=== PATIENT | female | born 1970 | race Caucasian/White ===

== ENCOUNTER → 2017-08-31 | Outpatient (CLI) | payer OTHER ==
[~2017-08-31] MED LIST: BUTA1TAB46 PO; CYCL10TA9 PO; DOXY100C2 PO; DULO30CA; DULO60CA58 PO; DULO60CA6 PO; EST1.25T; HYDR-3812 PO; LEVE750T16 PO; LEVE750T5 PO; LISI10TA2 PO; LRZ1T; METF500T4 PO; MTF500T; NAPR-243 PO; NF-ESOM40C; OXYC-197 PO; TOPI50TA20; ZONI100C3 PO; ZONISAMIDE PO
--- NOTE | 2017-08-31 10:48 | Diagnostic Imaging Report ---
EXAMINATION: Three views of the lumbar spine. INDICATION: Back pain. FINDINGS: There is straightening of the lumbar lordosis. The vertebral body heights are preserved. Disc heights are also preserved. There is minimal anterior osteophyte formation at L3/4 level. No posterior osteophytes. SI joints appear symmetric. Surgical clips in the upper right side of the abdomen seen. IMPRESSION: Straightening of the lumbar lordosis may relate to muscle spasm. Dictated by: Dictated on workstation # [id number]
== END ==
LOC: RAD 09:49
PROVIDERS: ATTEND Neuromusculoskeletal Medicine, Sports Medicine
DX: M40.56 Lordosis, unspecified, lumbar region (principal); I10 Essential (primary) hypertension; E66.9 Obesity, unspecified; E11.9 Type 2 diabetes mellitus without complications; F32.9 Major depressive disorder, single episode, unspecified; Z87.19 Personal history of other diseases of the digestive system; Z86.19 Personal history of other infectious and parasitic diseases
CPT/HCPCS: 72100

== ENCOUNTER → 2017-09-16 | Outpatient (CLI) | payer MEDICARE, OTHER ==
[~2017-09-16] MED LIST changes: +ACHD5005 PO; -HYDR-3812 PO; +LEVE750T19 PO; +NF-ZONI100 PO
--- NOTE | 2017-09-16 11:18 | Diagnostic Imaging Report ---
CLINICAL INDICATION: Thyromegaly. Patient feels fullness in right neck. COMPARISONS: None. FINDINGS: THYROID NODULES: None. THYROID GLAND: The thyroid gland has normal size, shape and echogenicity. The right lobe measures 6.1 cm x 1.9 cm x 1.9 cm and the left lobe measures 4.9 cm x 1.9 cm x 1.7 cm in their three dimensions. ISTHMUS: The isthmus is unremarkable and measures 2.3 mm in thickness. Impression: Unremarkable thyroid ultrasound. Dictated by: Dictated on workstation # [id number]
== END ==
LOC: RAD 10:35
PROVIDERS: ATTEND Internal Medicine
DX: E01.0 Iodine-deficiency related diffuse (endemic) goiter (principal)
CPT/HCPCS: 76536

== ENCOUNTER 2017-09-17 05:43 | Outpatient (CLI) | payer MEDICARE ==
[~2017-09-17] VITALS: Ht 160 cm; Wt 134.9 kg
[~2017-09-17 05:43] MED LIST changes: -LEVE750T19 PO; -NF-ZONI100 PO
[2017-09-17] MEDS ORDERED: LEVE750T19 PO (13:43)
[2017-09-17] MEDS ORDERED: NF-ZONI100 PO (13:43)
[2017-09-18] MEDS ORDERED: ACHD5005 PO (09:04)
== END 2017-09-17 13:51 ==
LOC: PREOP 05:43
PROVIDERS: ATTEND Surgery
DX: Z01.818 Encounter for other preprocedural examination (principal); T82.9XXA Unspecified complication of cardiac and vascular prosthetic device, implant and graft, initial encounter

== ENCOUNTER 2017-09-18 07:14 | Day surgery (SDC) | payer MEDICARE ==
[~2017-09-18] VITALS: Ht 160 cm; Wt 134.9 kg
[~2017-09-18 07:14] MED LIST changes: +LEVE750T19 PO; +NF-ZONI100 PO
[2017-09-18] MEDS ORDERED: ceFAZolin 2 GM/50 ML NS 50 ML ONE (07:43)
[2017-09-18 07:52] VITALS: BP 157/94
[2017-09-18] MEDS ORDERED: ceFAZolin 2 GM/50 ML NS 50 ML IV ONE (08:00)
[2017-09-18] MEDS ORDERED: ceFAZolin 2 GM/NS 50 ML IV ONE (08:00)
[2017-09-18] MEDS ORDERED: BUP/EPI 0.5% 1:200,000 (MARCAINE) 10ML VIAL IJ ONE (08:32)
--- NOTE | 2017-09-18 08:35 | Progress Note-Pre Operative ---
Pre-Operative Progress Note H&P Reviewed The H&P was reviewed, patient examined and no changes noted. Date Seen by Provider: Sep 16, 2017 Time Seen by Provider: 14:00 Date H&P Reviewed: Sep 18, 2017 Time H&P Reviewed: 08:35 Pre-Operative Diagnosis: Unused infusaport JIHAN REYES MD Sep 18, 2017 8:35 am
[2017-09-18] MEDS ORDERED: MIDAZOLAM 2 MG/2 ML (VERSED) VIAL ONE ×2 (08:48→09:09)
[2017-09-18] MEDS ORDERED: proPOfol 200 MG/20 ML (DIPRIVAN) VIAL IV ONE (08:48)
[2017-09-18] MEDS ORDERED: LIDOCAINE PF 2% 5 ML (XYLOCAINE) VIAL ONE (08:48)
[2017-09-18] MEDS ORDERED: ACHD5005 PO (09:04)
--- NOTE | 2017-09-18 09:04 | Discharge Inst-Simple/Standard ---
Discharge Inst-Standard Discharge Medications New, Converted or Re-Newed RX: RX on Chart Patient Instructions/Follow Up Plan of Care/Instructions/FU: dressings off in 48 hours. Activity as Tolerated: Yes Discharge Diet: No Restrictions JIHAN REYES MD Sep 18, 2017 9:04 am
[2017-09-18] MEDS ORDERED: fentaNYL INJECTION 100 MCG/2 ML AMP ONE (09:05)
--- NOTE | 2017-09-18 09:32 | Operative Report ---
Operative Report Date of Procedure/Surgery Sep 18, 2017 Surgeon (s) JIHAN REYES MD Solar Panel Installation Supervisor (s): Jeyson Wilcox (Medical Student) Post-Operative Diagnosis Same Procedure Performed Removal of [id number]-j-Gbtf Description of Procedure Anesthesia Type: MAC Estimated blood loss (mL): Minimal Specimen(s) collected/removed None Description of the Procedure Indication for the procedure: Due to non-use of an existing and functional Yuwbiu-w-Armi, the patient requested removal. Informed consent was obtained after reviewing the procedure in detail. Description of the procedure: She was placed supine on the operative table and our anesthesiologist administered sedation, monitoring her vital signs. Ancef was administered intravenously as prophylaxis against wound infection. Right infraclavicular fossa was prepared and draped in the usual sterile manner. Local anesthesia was achieved using 0.5 percent Marcaine with epinephrine. A secondary incision was made along the previous scar and the [id number] removed without risking air embolism. The incision was then closed using 3-0 Vicryl for the subcutaneous tissue and 4- 0 Vicryl for skin, in a subcuticular fashion. She tolerated the procedure well and was taken back to the nursing area in a stable condition. Findings of the Procedure See op report Allergies and Home Medications Allergies Coded Allergies: Penicillins (Verified Allergy, Unknown, Pt has received Ancef w/o issue, ) Home Medications Duloxetine HCl 60 Mg Capsule.dr, 60 MG PO DAILY, (Reported) Hydrocodone Bit/Acetaminophen 1 Tab Tab, 1-2 TAB PO 4-6HR PRN for PAIN, #10 Ref 0 Prescribed by: JIHAN REYES on 09/18/17 0904 Levetiracetam 750 Mg Tablet, 750 MG PO BID, (Reported) Lisinopril 10 Mg Tablet, 10 MG PO DAILY, (Reported) Metformin HCl 500 Mg Tablet, 500 MG PO DAILY, (Reported) Zonisamide 100 Mg Capsule, 100 MG PO BID, (Reported) JIHAN REYES MD Sep 18, 2017 9:32 am
[2017-09-18] MEDS ORDERED: morphine INJ 10 MG/ML 1ML (SYR OR VIAL) ONE (09:42)
[2017-09-18] MEDS: morphine INJ 10 MG/ML 1ML (SYR OR VIAL) IVP PRN ×2 (09:45→09:49)
[2017-09-18] MEDS ORDERED: ONDANSETRON 4 MG/2 ML (SDV) Z0FRAN IVP PRN (09:45)
[2017-09-18 10:10] VITALS: BP 150/94
[2017-09-18 10:36] VITALS: BP 153/96
[2017-09-18 10:42] VITALS: BP 153/96
--- OUTSIDE RECORDS SUMMARY | 2017-09-19 00:11 | XMS REPORT | Clinical Summary ---
Author Author [facility] Address Unknown Phone Unavailable Support Name Relationship Address Phone , Rk Alvarez [address] [place] [address] Allergies Active Allergy Reactions Severity Noted Date Comments Penicillins Rash Medium 05/09/2011 Current Medications Prescription Sig. Disp. Refills Start End Date Status Date duloxetine (CYMBALTA) 30 Take 60 mg by mouth Active MG capsule daily. zonisamide (ZONEGRAN) 100 Take 200 mg by mouth 2 05/09/20 Active MG capsuleIndications: (two) times daily. 11 Seizure Indications: Seizure levETIRAcetam (KEPPRA) Take 750 mg by mouth 2 Active 250 MG tablet (two) times daily. estrogens, conjugated, Take 1.25 mg by mouth Active (PREMARIN) 1.25 MG tablet daily. lisinopril Take 20 mg by mouth Active (PRINIVIL,ZESTRIL) 20 MG daily. tablet ARIPiprazole (ABILIFY) 10 Take 5 mg by mouth daily. Active MG tablet hydrOXYzine (VISTARIL) 50 Take 50 mg by mouth every Active MG capsule evening. Active Problems Problem Noted Date Suicidal ideation 05/20/2011 Seizure disorder (HCC) 05/20/2011 Major depressive disorder, recurrent episode, severe, without mention of 02/2011 psychotic behavior (HCC) Family History Medical History Relation Name Comments Cancer Father ALANA ZENG Heart disease Father ALANA ZENG Hypertension Father ALANA ZENG Mental illness Sister MIL CLARKUSSER Mental illness Sister MICHAEL HERRMANN Relation Name Status Comments Father ALANA Alive KARRI Sister MIL SLUSSER Alive Sister MICHAEL Alive PRESTONLER Social History Tobacco Use Types Packs/Day Years Used Date Current Every Day Smoker 3 Comments: Smoking History Packs/day: Daily/Cigars/3 cigars Alcohol Use Drinks/Week oz/Week Comments No Sex Assigned at Date Recorded Not on file Last Filed Vital Signs Vital Sign Reading Time Taken Blood Pressure 94/77 01/09/2012 1:04 AM CDT Pulse 85 01/09/2012 1:04 AM CDT Temperature 36.8 C (98.2 F) 01/08/2012 9:54 PM CDT Respiratory Rate 20 01/08/2012 9:54 PM CDT Oxygen Saturation 94% 01/09/2012 1:04 AM CDT Inhaled Oxygen - - Concentration Weight 104.3 kg (230 lb) 01/08/2012 9:54 PM CDT Height 160 cm (5' 3") 01/08/2012 9:54 PM CDT Body Mass Index 40.74 01/08/2012 9:54 PM CDT Plan of Treatment Health Maintenance Due Date Last Done Comments Varicella Vaccines (1 of 1985 2 - 2 Dose Adolescent Series) DTaP,Tdap,and Td Vaccines 11/25/1991 (1 - Tdap) CERVICAL CANCER SCREENING 1993 Influenza Vaccine (#1) 2017 Results Not on filefrom Last 3 Months
--- OUTSIDE RECORDS SUMMARY | 2017-09-19 00:11 | XMS REPORT ---
Author Author TIMO [facility] Address Unknown Care Team Providers Care Transportation Services Representative Name Role Phone bonnyMontseTIMO TALLEY Unavailable PROBLEMS Type Condition ICD9-CM Code [id number] Code Onset Dates Condition Status SNOMED Code Problem Diabetes mellitus without mention of complication, type II or unspecified type, not stated as uncontrolled 250.00 Active 739220439 Problem Obesity, unspecified 278.00 Active 442991360 Problem Other forms of epilepsy and recurrent seizures, without mention of intractable epilepsy 345.80 Active 068430551 Problem Lumbago 724.2 Active 598597384 Problem Cough 786.2 Active 11731388 Problem Fever, unspecified 780.60 Active 112902464 Problem Other complications due to other vascular device, implant, and graft 996.74 Active 774560431 Problem Acute pharyngitis 462 Active 354255470 Problem Other malaise and fatigue 780.79 Active 730210494 ALLERGIES Substance Reaction Event Type Date Status Penicillin V Potassium Unknown Drug Allergy Aug, Active SOCIAL HISTORY No smoking Hx information available PLAN OF CARE Activity Details Follow Up 1 Week Reason:te VITAL SIGNS Blood pressure systolic 113 mmHg 2016-08-20 Blood pressure diastolic 72 mmHg 2016-08-20 MEDICATIONS Medication Instructions Dosage Frequency Start Date End Date Duration Status Lisinopril 10 MG Orally Once a day take 1 tablet by Oral route 1 time per day at bedtime 24h Nov, 30 days Active Duloxetine HCl 60 MG Orally Once a day 1 capsule 24h Mar, 10 days Active Clindamycin HCl 150 MG Orally every 8 hrs 1 capsule 8h 7 days Active Zonisamide 100 MG Orally Twice a day 2 capsules 12h Nov, 30 days Active Levetiracetam 750 MG Orally 2 times a day 2 tablets 12h Nov, 30 days Active RESULTS No Results PROCEDURES Procedure Date Ordered Related Diagnosis Body Site LTD ORAL EVALUATION - PROBLEM FOCUS Aug 20, 2016 INTRAORL-PERIAPICAL 1 FILM [id number] Aug 20, 2016 Billing Notes on claim Aug 20, 2016 IMMUNIZATIONS No Known Immunizations
--- OUTSIDE RECORDS SUMMARY | 2017-09-19 00:12 | XMS REPORT | Continuity of Care Document ---
Author Author [facility] Address Unknown Phone Unavailable Allergies Active Description Code Type Severity Reaction Onset Reported/Identified Relationship to Patient Clinical Status Yes Penicillins [id number] Drug Allergy Unknown N/A 07/11/2006 Yes Penicillins Drug Allergy N/A N/A 07/14/2014 Medications There is no data. Problems Date Dx Coded Attending Type Code Diagnosis Diagnosed By 02/12/2010 Ot 780.39 02/12/2010 Ot V58.81 11/06/2013 HOANG JESUS DO Ot V58.81 FIT/ADJ VASCULAR CATHETER 02/21/2014 JERRICA ARELLANO, LEESA Myers Ot 401.9 HYPERTENSION NOS 02/21/2014 JERRICA ARELLANO, LEESA Myers Ot 840.9 SPRAIN SHOULDER/ARM NOS 02/21/2014 JERRICA ARELLANO, LEESA Myers Ot 923.00 CONTUSION SHOULDER REG 02/21/2014 JERRICA ARELLANO, LEESA Myers Ot E885.9 FALL FROM SLIPPING, TRIPPING, OR STUMBLI 06/26/2014 GABY FORREST Ot V70.0 ROUTINE MEDICAL EXAM 07/14/2014 SARAH GONZALEZ APRN R 250.00 DIABETES MELLITUS WITHOUT MENTION OF COMPLICATION TYPE II OR UNSPECIFIED TYPE NOT STATED UNCONTROLLED 07/14/2014 SARAH GONZALEZ APRN R 278.00 OBESITY 07/14/2014 SARAH GONZALEZ APRN R 345.80 OTHER FORMS OF EPILEPSY AND RECURRENT SEIZURES WITHOUT MENTION OF INTRACTABLE EPILEPSY 07/14/2014 SARAH GONZALEZ APRN R 250.00 DIABETES MELLITUS WITHOUT MENTION OF COMPLICATION TYPE II OR UNSPECIFIED TYPE NOT STATED UNCONTROLLED 07/14/2014 SARAH GONZALEZ APRN R 278.00 OBESITY 07/14/2014 SARAH GONZALEZ APRN R 345.80 OTHER FORMS OF EPILEPSY AND RECURRENT SEIZURES WITHOUT MENTION OF INTRACTABLE EPILEPSY 07/14/2014 SARAH GONZALEZ APRN R 250.00 DIABETES MELLITUS WITHOUT MENTION OF COMPLICATION TYPE II OR UNSPECIFIED TYPE NOT STATED UNCONTROLLED 07/14/2014 SARAH GONZALEZ APRN R 278.00 OBESITY 07/14/2014 SARAH GONZALEZ APRN R 345.80 OTHER FORMS OF EPILEPSY AND RECURRENT SEIZURES WITHOUT MENTION OF INTRACTABLE EPILEPSY 08/17/2014 SARAH GONZALEZ APRN R 780.60 FEVER, UNSPECIFIED 08/17/2014 SARAH GONZALEZ APRN R 780.79 OTHER MALAISE AND FATIGUE 08/17/2014 SARAH GONZALEZ APRN R 780.60 FEVER, UNSPECIFIED 08/17/2014 SARAH GONZALEZ APRN R 780.79 OTHER MALAISE AND FATIGUE 08/17/2014 Ot 780.79 08/17/2014 Ot 791.9 08/17/2014 Ot 786.3 08/17/2014 Ot 250.00 08/17/2014 Ot 272.4 08/17/2014 Ot 611.72 08/17/2014 Ot V16.3 08/17/2014 Ot 593.9 08/17/2014 Ot 250.00 08/17/2014 Ot 272.4 08/17/2014 HOANG JESUS DO Ot 250.00 08/17/2014 HOANG JESUS DO Ot 272.0 08/17/2014 HOANG JESUS DO Ot 780.39 08/17/2014 HOANG JESUS DO Ot 571.8 08/17/2014 SARAH GONZALEZ APRN Ot V58.81 08/17/2014 SARAH GONZALEZ APRN Ot V58.81 08/17/2014 SARAH GONZALEZ APRN Ot V58.81 08/17/2014 SARAH GONZALEZ APRN Ot V58.81 08/17/2014 SARAH GONZALEZ APRN Ot V58.81 08/18/2014 SARAH GONZALEZ APRN Ot V58.81 08/23/2014 SARAH GONZALEZ APRN Ot V58.81 08/31/2014 SARAH GONZALEZ APRN 996.74 OTHER COMPLICATIONS DUE TO OTHER VASCULAR DEVICE IMPLANT AND GRAFT 11/15/2014 SARAH GONZALEZ APRN Ot V58.81 FIT/ADJ VASCULAR CATHETER 12/14/2014 Ot V76.12 12/25/2014 Ot V76.12 12/26/2014 HOANG JESUS DO Ot 571.8 04/05/2015 Ot 611.72 04/05/2015 Ot V16.3 04/05/2015 Ot 593.9 04/05/2015 Ot 250.00 04/05/2015 Ot 272.4 04/05/2015 HOANG JESUS DO Ot 250.00 04/05/2015 KRISTENLENDER , HOANG Gutierrez Ot 272.0 04/05/2015 HOANG JESUS DO Ot 780.39 04/05/2015 HOANG JESUS DO Ot 571.8 04/05/2015 Ot V58.81 04/05/2015 Ot V76.12 04/05/2015 DOMI BURTON DO Ot 250.00 DIAB BARRY WO COMPL, TYPE II OR UNSPEC TY 04/05/2015 DOMI BURTON DO Ot 339.10 TENSION TYPE HEADACHE, UNSPECIFIED 04/05/2015 DOMI BURTON DO Ot 784.0 HEADACHE 04/05/2015 DOMI BURTON DO Ot V58.69 OTH MED,LT,CURRENT USE 04/30/2015 Ot 611.72 04/30/2015 Ot V16.3 04/30/2015 Ot 593.9 04/30/2015 HOANG JESUS DO Ot 250.00 04/30/2015 HOANG JESUS DO Ot 272.0 04/30/2015 HOANG JESUS DO Ot 780.39 04/30/2015 Ot V58.81 05/02/2015 ERIC ARELLANO, JIHAN Ramos Ot 250.00 DIAB BARRY WO COMPL, TYPE II OR UNSPEC TY 05/02/2015 ERIC ARELLANO, JIHAN Ramos Ot 459.81 VENOUS INSUFFICIENCY NOS 05/02/2015 ERIC ARELLANO, JIHAN Ramos Ot 996.1 MALFUNC VASC DEVICE/TOYA 05/07/2015 ERIC ARELLANO, JIHAN Ramos Ot 345.90 05/07/2015 ERIC ARELLANO, JIHAN Ramos Ot 459.81 05/07/2015 ERIC ARELLANO, JIHAN Ramos Ot 996.1 05/07/2015 ERIC ARELLANO, JIHAN Ramos Ot V72.84 05/07/2015 ERIC RAELLANO, JIHNA Ramos Ot V74.8 07/18/2016 ERIC ARELLANO, JIHAN Ramos Ot K80.20 CALCULUS OF GALLBLADDER W/O CHOLECYSTITI 07/18/2016 ERIC ARELLANO, JIHAN Ramos Ot Z01.818 ENCOUNTER FOR OTHER PREPROCEDURAL EXAMIN 07/18/2016 ERIC ARELLANO, JIHAN Ramos Ot Z11.2 ENCOUNTER FOR SCREENING FOR OTHER BACTER 07/21/2016 ERIC ARELLANO, JIHAN Ramos Ot K80.20 CALCULUS OF GALLBLADDER W/O CHOLECYSTITI 07/21/2016 ERIC ARELLANO, JIHAN Ramos Ot Z01.818 ENCOUNTER FOR OTHER PREPROCEDURAL EXAMIN 07/21/2016 ERIC ARELLANO, JIHAN Ramos Ot Z11.2 ENCOUNTER FOR SCREENING FOR OTHER BACTER 07/23/2016 ERIC ARELLANO, JIHAN Ramos Ot K80.20 CALCULUS OF GALLBLADDER W/O CHOLECYSTITI 07/23/2016 ERIC ARELLANO, JIHAN Ramos Ot Z11.2 ENCOUNTER FOR SCREENING FOR OTHER BACTER 07/24/2016 ERIC ARELLANO, JIHAN Ramos Ot K80.20 CALCULUS OF GALLBLADDER W/O CHOLECYSTITI 07/24/2016 ERIC ARELLANO, JIHAN Ramos Ot Z11.2 ENCOUNTER FOR SCREENING FOR OTHER BACTER 09/14/2016 GELNAMDER DO, HOANG A Ot V58.81 FIT/ADJ VASCULAR CATHETER 10/15/2016 GELLENDER DO HOANG A Ot V58.81 FIT/ADJ VASCULAR CATHETER 03/14/2017 GELLENDER DO, HOANG A Ot V58.81 FIT/ADJ VASCULAR CATHETER 08/31/2017 GELLENDER DOHOANG A Ot 250.00 DIAB BARRY WO COMPL, TYPE II OR UNSPEC TY 08/31/2017 GELLENDER DOHOANG A Ot 272.0 PURE HYPERCHOLESTEROLEM 08/31/2017 GELLENDER DO, HOANG A Ot 780.39 OTHER CONVULSIONS 08/31/2017 GELJOSE DOHOANG Ot 571.8 CHRONIC LIVER DIS NEC 08/31/2017 Ot V58.81 FIT/ADJ VASCULAR CATHETER 08/31/2017 Ot V76.12 OTH SCREEN MAMMO-MALIGN NEOPLASM OF VIKOTR 08/31/2017 ERIC ARELLANO, JIHAN Ramos Ot 345.90 EPILEPSY UNSPEC W/O MENTION INTRACTABLE 08/31/2017 JIHAN REYES MD Ot 459.81 VENOUS INSUFFICIENCY NOS 08/31/2017 JIHAN REYES MD Ot 996.1 MALFUNC VASC DEVICE/TOYA 08/31/2017 JIHAN REYES MD Ot V72.84 EXAM PRE-OPERATIVE NOS 08/31/2017 JIHAN REYES MD Ot V74.8 SCREEN-BACTERIAL DIS NEC 08/31/2017 HOANG JESUS DO Ot 250.00 DIAB BARRY WO COMPL, TYPE II OR UNSPEC TY 08/31/2017 HOANG JESUS DO Ot 272.0 PURE HYPERCHOLESTEROLEM 08/31/2017 HOANG JESUS DO Ot 780.39 OTHER CONVULSIONS 08/31/2017 HOANG JESUS DO Ot 571.8 CHRONIC LIVER DIS NEC 08/31/2017 Ot V58.81 FIT/ADJ VASCULAR CATHETER 08/31/2017 Ot V76.12 OTH SCREEN MAMMO-MALIGN NEOPLASM OF VIKTOR 08/31/2017 ERIC ARELLANO, JIHAN Ramos Ot 345.90 EPILEPSY UNSPEC W/O MENTION INTRACTABLE 08/31/2017 ERIC ARELLANO, JIHAN Ramos Ot 459.81 VENOUS INSUFFICIENCY NOS 08/31/2017 ERIC ARELLANO, JIHAN Ramos Ot 996.1 MALFUNC VASC DEVICE/TOYA 08/31/2017 ERIC ARELLANO, JIHAN Ramos Ot V72.84 EXAM PRE-OPERATIVE NOS 08/31/2017 ERIC ARELLANO, JIHAN Ramos Ot V74.8 SCREEN-BACTERIAL DIS NEC 09/01/2017 Ot E11.9 TYPE 2 DIABETES MELLITUS WITHOUT COMPLIC 09/01/2017 Ot E66.9 OBESITY, UNSPECIFIED 09/01/2017 Ot F32.9 MAJOR DEPRESSIVE DISORDER, SINGLE EPISOD 09/01/2017 Ot I10 ESSENTIAL ( PRIMARY) HYPERTENSION 09/01/2017 Ot M40.56 LORDOSIS, UNSPECIFIED, LUMBAR REGION 09/01/2017 Ot Z86.19 PERSONAL HISTORY OF OTHER INFECTIOUS AND 09/01/2017 Ot Z87.19 PERSONAL HISTORY OF OTHER DISEASES OF TH 09/01/2017 Ot E11.9 TYPE 2 DIABETES MELLITUS WITHOUT COMPLIC 09/01/2017 Ot E66.9 OBESITY, UNSPECIFIED 09/01/2017 Ot F32.9 MAJOR DEPRESSIVE DISORDER, SINGLE EPISOD 09/01/2017 Ot I10 ESSENTIAL ( PRIMARY) HYPERTENSION 09/01/2017 Ot M40.56 LORDOSIS, UNSPECIFIED, LUMBAR REGION 09/01/2017 Ot Z86.19 PERSONAL HISTORY OF OTHER INFECTIOUS AND 09/01/2017 Ot Z87.19 PERSONAL HISTORY OF OTHER DISEASES OF Procedures Code Description [place] [address] CMP 08/17/2014 59796 A1C (IN-HOUSE) 08/17/2014 15269 CBC 08/17/2014 38231 MONO TEST (IN-HOUSE) 08/17/2014 20083 UA W/ CULTURE IF INDICATED 08/17/2014 Results Test Result Range Methicillin resistant Staphylococcus aureus (MRSA) screening culture - 13:10 Methicillin resistant Staphylococcus aureus (MRSA) screening culture NEG NRG Encounters ACCT No. Visit Date/Time Discharge Status Pt. Type Provider Facility Loc./Unit Complaint [id number] 08/31/2014 09:15:00 08/31/2014 23:59:59 CLS Outpatient SARAH GONZALEZ APRN [id number] 08/17/2014 13:35:00 08/17/2014 23:59:59 CLS Outpatient SARAH GONZALEZ APRN [id number] 07/14/2014 13:12:00 07/14/2014 23:59:59 CLS Outpatient SARAH GONZALEZ APRN [id number] 01/11/2010 15:09:00 01/11/2010 23:59:59 CLS Outpatient MICHEL ALAMO DDS [id number] 07/23/2016 06:17:00 07/23/2016 11:58:00 DIS Outpatient JIHAN REYES MD Via [facility] GALLSTONES [id number] 07/18/2016 12:45:00 07/18/2016 13:15:00 DIS Outpatient JIHAN REYES MD [facility] PREOP GALLSTONES [id number] 05/02/2015 09:15:00 05/02/2015 17:39:00 DIS Outpatient JIHAN REYES MD [facility] NON-FUNCTIONING PORT; POOR VENOUS ACCESS [id number] 04/30/2015 09:52:00 04/30/2015 23:59:59 CLS Outpatient JIHAN REYES MD [facility] PREOP NON-FUNCITIONING PORT; POOR VENOUS ACCESS [id number] 04/05/2015 02:02:00 04/05/2015 04:39:00 DIS Emergency DOMI BURTON DO [facility] ER AMIN [id number] 08/17/2014 14:57:00 08/17/2014 23:59:59 CLS Outpatient SARAH GONZALEZ APRN [facility] INDWELLING PORT, OBESITY,DM,FEVER,MALAISE,FATIGUE [id number] 06/26/2014 18:52:00 06/26/2014 19:38:00 DIS Emergency GABY FORREST [facility] ER WANTS MEDS REFILLED [id number] 02/21/2014 01:08:00 02/21/2014 02:42:00 DIS Emergency LEESA BECERRIL MD [facility] ER RT SHOULDER PAIN-FALL 1 WK AGO [id number] 08/08/2013 10:37:00 11/06/2013 00:01:00 DIS Outpatient HOANG JESUS DO [facility] MONTHLY PORT FLUSH X 1 YR [id number] 08/08/2013 10:25:00 08/08/2013 23:59:59 CLS Outpatient HOANG JESUS DO [facility] RAD ABD PAIN RT SIDE FOR 2 MONTHS [id number] 03/23/2013 16:19:00 03/23/2013 23:59:59 CLS Outpatient [id number] 03/14/2013 08:48:00 03/14/2013 23:59:59 CLS Outpatient HOANG JESUS DO [facility] LAB DM,HYPERLCH,SEIZURE [id number] 09/18/2017 08:36:00 Document Registration [id number] 08/31/2017 10:42:00 Document Registration [id number] 11/23/2014 14:09:00 Document Registration [id number] 11/16/2014 00:00:00 Document Registration [id number] 04/02/2010 15:59:00 Document Registration [id number] 11/23/2009 15:59:00 Document Registration [id number] 11/14/2009 12:04:00 Document Registration [id number] 11/14/2009 10:50:00 Document Registration [id number] 07/31/2009 16:00:00 Document Registration [id number] 06/08/2009 15:46:00 Document Registration [id number] 06/06/2009 08:34:00 Document Registration
--- OUTSIDE RECORDS SUMMARY | 2017-09-19 00:12 | XMS REPORT ---
Author Author TIMO [facility] Address Unknown Care Team Providers Care [employer] Officer Name Role Phone [email or web address] ONEIL Unavailable PROBLEMS Type Condition ICD9-CM Code [id number] Code Onset Dates Condition Status SNOMED Code Problem Diabetes mellitus without mention of complication, type II or unspecified type, not stated as uncontrolled 250.00 Active 020302471 Problem Obesity, unspecified 278.00 Active 449073865 Problem Other forms of epilepsy and recurrent seizures, without mention of intractable epilepsy 345.80 Active 193816369 Problem Lumbago 724.2 Active 006707154 Problem Cough 786.2 Active 35888513 Problem Fever, unspecified 780.60 Active 520734733 Problem Other complications due to other vascular device, implant, and graft 996.74 Active 008981041 Problem Acute pharyngitis 462 Active 635359655 Problem Other malaise and fatigue 780.79 Active 255807968 ALLERGIES Substance Reaction Event Type Date Status Penicillin V Potassium Unknown Drug Allergy Aug, Active SOCIAL HISTORY No smoking Hx information available PLAN OF CARE Activity Details Follow Up prn Reason:DIAMOND denture consult VITAL SIGNS Height 64 in 2016-08-27 Blood pressure systolic 110 mmHg 2016-08-27 Blood pressure diastolic 71 mmHg 2016-08-27 MEDICATIONS Medication Instructions Dosage Frequency Start Date End Date Duration Status Clindamycin HCl 150 MG Orally every 8 hrs 1 capsule 8h 7 days Active Duloxetine HCl 60 MG Orally Once a day 1 capsule 24h Mar, 10 days Active Lisinopril 10 MG Orally Once a day take 1 tablet by Oral route 1 time per day at bedtime 24h Nov, 30 days Active Zonisamide 100 MG Orally Twice a day 2 capsules 12h Nov, 30 days Active Levetiracetam 750 MG Orally 2 times a day 2 tablets 12h Nov, 30 days Active RESULTS No Results PROCEDURES Procedure Date Ordered Related Diagnosis Body Site EXTRAC ERUPTED TOOTH/EXPOSED ROOT Aug 27, 2016 EXTRAC ERUPTED TOOTH/EXPOSED ROOT Aug 27, 2016 Billing Notes on claim Aug 27, 2016 IMMUNIZATIONS No Known Immunizations
== END 2017-09-18 10:42 | disposition home or self-care (01) ==
LOC: SDC 07:14
PROVIDERS: ATTEND Surgery
DX: Z45.2 Encounter for adjustment and management of vascular access device (principal); I10 Essential (primary) hypertension; E11.9 Type 2 diabetes mellitus without complications; R56.9 Unspecified convulsions; G43.909 Migraine, unspecified, not intractable, without status migrainosus; E66.01 Morbid (severe) obesity due to excess calories; Z68.43 Body mass index [BMI] 50.0-59.9, adult; Z08 Encounter for follow-up examination after completed treatment for malignant neoplasm; Z85.3 Personal history of malignant neoplasm of breast; Z79.84 Long term (current) use of oral hypoglycemic drugs; Z79.899 Other long term (current) drug therapy
CPT/HCPCS: 87081

== ENCOUNTER 2018-04-30 20:23 | Outpatient (CLI) | payer MEDICARE ==
[~2018-04-30 20:23] MED LIST changes: -METF500T4 PO; +METF500T5 PO
== END 2018-05-01 06:18 | disposition home or self-care (01) ==
LOC: SLEEP 20:23
PROVIDERS: ATTEND Psychiatry & Neurology Neurology
DX: G47.33 Obstructive sleep apnea (adult) (pediatric) (principal); G47.10 Hypersomnia, unspecified; G40.909 Epilepsy, unspecified, not intractable, without status epilepticus; R06.83 Snoring
CPT/HCPCS: 95810

== ENCOUNTER → 2018-11-24 | Outpatient (CLI) | payer MEDICARE, OTHER ==
[~2018-11-24] MED LIST changes: +METF-397 PO; -METF500T5 PO; -OXYC-197 PO; +OXYC1TAB87 PO
== END | disposition home or self-care (01) ==
LOC: PREOP 05:55
PROVIDERS: ATTEND Surgery
DX: Z01.818 Encounter for other preprocedural examination (principal)

== ENCOUNTER 2018-11-29 10:28 | Day surgery (SDC) | payer MEDICARE, OTHER ==
[~2018-11-29] VITALS: Ht 160 cm; Wt 134.9 kg
--- NOTE | 2018-11-29 10:35 | Conscious Sedation/ASA ---
Conscious Sedation Pre-Proced Time 10:35 ASA Score 2 For ASA 3 and 4: Consider anesthesia and medical clearance. Also, for patients with a history of failed moderate sedation consider anesthesia. Airway Lungs Heart ASA score ASA 1: a normal healthy patient ASA 2: a patient with a mild systemic disease (mid diabetes, controlled hypertension, obesity ASA 3: a patient with a severe systemic disease that limits activity (angina , COPD, prior Myocardial infarction) ASA 4: a patient with an incapacitating disease that is a constant threat to life (CHF, renal failure) ASA 5: a moribund patient not expected to survive 24 hrs. (ruptured aneurysm) ASA 6: a declared brain- patient whose organs are being harvested. For emergent operations, add the letter E after the classification Mallampati Classification Grade 1 Sedation Plan Discussed options with patient/fam The patient is an appropriate candidate to undergo the planned procedure, sedation, and anesthesia. The patient immediately re-assessed prior to indication. JIHAN REYES MD Nov 29, 2018 10:35
[2018-11-29] MEDS ORDERED: NS IV 500 ML 500 ML IV PRN (10:43)
[2018-11-29] MEDS ORDERED: fentaNYL INJECTION 100 MCG/2 ML AMP IVP ONE (10:45)
[2018-11-29] MEDS ORDERED: HURRICAINE EXT TUBE (BENZOCAINE) XX PRN (10:45)
[2018-11-29] MEDS ORDERED: MIDAZOLAM 2 MG/2 ML (VERSED) VIAL IVP ONE (10:45)
[2018-11-29] MEDS ORDERED: NS IV 500 ML 500 ML ONE (10:50)
[2018-11-29 11:25] VITALS: BP 126/84
[2018-11-29] MEDS ORDERED: fentaNYL INJECTION 100 MCG/2 ML AMP ONE (11:54)
[2018-11-29] MEDS ORDERED: MIDAZOLAM 2 MG/2 ML (VERSED) VIAL ONE ×4 (11:54)
[2018-11-29] MEDS ORDERED: HURRICAINE EXT TUBE (BENZOCAINE) ONE (12:01)
--- NOTE | 2018-11-29 12:51 | Endo Procedure Record ---
Endo Procedure Report Date of Procedure Last Colonoscopy: No Nov 29, 2018 Surgeon (s) JIHAN REYES MD Post Procedure/Op Diagnosis grade 2 esophagitis. 2 mm antral ulcer Procedure Performed EGD with biopsy of antral ulcer Description of Procedure Anesthesia Type: Conscious Sedation Specimen(s) collected/removed tissue from the edge of the antral ulcer Description of the Procedure Indication for the procedure: This lady came in for an upper endoscopy to evaluate severe epigastric pain. Informed consent was obtained after reviewing the procedure in detail. Description of the procedure: She was placed in left lateral decubitus position and her vital signs were monitored. Conscious sedation was achieved using Versed and fentanyl. The flexible gastroscope was then introduced down the esophagus, past the stomach, into the proximal duodenum. Findings: Esophagus: Grade 2 esophagitis. Stomach: 2 mm ulcer of the gastric antrum. Biopsy from the edge of the ulcer was obtained. Duodenum: Normal She tolerated the procedure well and was taken back to the nursing area in a stable condition. Impression: Epigastric pain. Grade 2 esophagitis and and antral ulcer. Biopsy pending. Copy Copies To 1: JOSE DE JESUS BRAR MD,JIHAN Ramos MD Nov 29, 2018 12:51
--- NOTE | 2018-11-29 12:53 | Discharge Inst-Simple/Standard ---
Discharge Inst-Standard Discharge Medications New, Converted or Re-Newed RX: Other Patient Instructions/Follow Up Plan of Care/Instructions/FU: please call for Protonix 40 mg daily 30 day supply with 3 refills to her pharmacy. Follow-up with her primary. Activity as Tolerated: Yes Discharge Diet: No Restrictions JIHAN REYES MD Nov 29, 2018 12:53
[2018-11-29 13:00] VITALS: BP 108/58
[2018-11-29 13:30] VITALS: BP 106/56
[2018-11-29 13:40] VITALS: BP 106/56
== END 2018-11-29 13:40 | disposition home or self-care (01) ==
LOC: ENDO 10:28
PROVIDERS: ATTEND Surgery
DX: K20.9 Esophagitis, unspecified (principal); K25.9 Gastric ulcer, unspecified as acute or chronic, without hemorrhage or perforation; K31.89 Other diseases of stomach and duodenum; Z85.3 Personal history of malignant neoplasm of breast; Z79.84 Long term (current) use of oral hypoglycemic drugs; Z79.899 Other long term (current) drug therapy; Z80.3 Family history of malignant neoplasm of breast

== ENCOUNTER → 2019-02-10 | Emergency (ER) | payer MEDICARE ==
[~2019-02-10] VITALS: Ht 160 cm; Wt 121.6 kg
[~2019-02-10] MED LIST changes: +MECL-106 PO; +MECLIZINE 25 MG (ANTIVERT) TAB PO ONE; +ONDA8TAB13 PO; +ONDANSETRON 4 MG (ZOFRAN) ORAL DISSOLVE TAB ONE; +ONDANSETRON 4 MG (ZOFRAN) ORAL DISSOLVE TAB PO STA; +ONDANSETRON 4 MG/2 ML (SDV) Z0FRAN IVP ONE; +RX-MECLIZINE HCL (ANTIVERT) 25 MG TAB #4 PPK PO STA; +RX-ONDANSETRON 4 MG ODT (ZOFRAN) PPK #4 PO STA; +SCOP1PAT11 TD; +SCOPOLAMINE 1.5 MG (TRANSDERM-SCOP) PATCH TD ONE
--- OUTSIDE RECORDS SUMMARY | 2019-02-10 23:44 | XMS REPORT ---
Author Author Migration, Doctor Organization [facility] Address Unknown Phone Unavailable Care Team Providers Care Glaciologist Name Role Phone Migration, Doctor Unavailable Unavailable PROBLEMS Type Condition ICD9-CM Code BBL87-GD Code Onset Dates Condition Status SNOMED Code Problem Lumbago 724.2 Active 603592642 Problem Thyromegaly E01.0 Active 65974495 Problem Body mass index (BMI) of 50-59.9 in adult Z68.43 Active 297987000 Problem Peptic ulcer disease K27.9 Active 39867795 Problem Prediabetes R73.03 Active 374878160 Problem Seizure disorder G40.909 Active 204043268 Problem Dysthymia F34.1 Active 87450418 Problem 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9 ; 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 ; Body mass index (BMI) of 50-59.9 in adult Z68.43 and Morbid obesity E66.01 [facility] [id number] [place] [address] Nov, [facility] [id number] [place] [address] 04 Nov, 2018 [facility] [id number] [place] [id number] Oct, [facility] [id number] [place] [id number] Oct, Dental examination Z01.20 and Caries K02.9 [place] [id number] [place] [address] Oct, [place] [id number] [place] [address] Sep, [place] [id number] [place] [address] Sep, [place] [id number] [place] [address] Sep, Prediabetes R73.03 and Thyromegaly E01.0 [id number] [place] [address] Jul, Nail fungus B35.1 ; Lumbar radiculopathy M54.16 and Prediabetes R73.03 [place] [address] [place] [address] Feb, Diarrhea of presumed infectious origin R19.7 ; Nausea R11.0 and BMI 45.0-49.9, adult Z68.42 [id number] [place] [address] Oct, 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 [place] [id number] [place] [address] Oct, [place] [id number] [place] [address] Sep, Hypertension 401.9 [place] [id number] [place] [address] Aug, Seizure disorder G40.909 ; Prediabetes R73.03 ; Dysthymia F34.1 and Thyromegaly E01.0 [facility] [id number] [place] [address] 14 Aug, 2016 Dental caries K02.9 [facility] [id number] [place] [address] 07 Aug, 2016 Dental examination Z01.20 [facility] [id number] [place] [address] Apr, [facility] [id number] [place] [address] Mar, [facility] [id number] [place] [address] Mar, Other forms of epilepsy and recurrent seizures, without mention of intractable epilepsy 345.80 ; Diabetes mellitus without mention of complication, type II or unspecified type, not stated as uncontrolled 250.00 ; Lumbago 724.2 ; Hypertension 401.9 and Migraine 346.90 [facility] [id number] [place] [address] Mar, [facility] [id number] [place] [address] Mar, [facility] [id number] [place] [address] Feb, [facility] [id number] [place] [address] Dec, [facility] [id number] [place] [address] Dec, [facility] [id number] [place] [address] Nov, [facility] [id number] [place] [address] Nov, [facility] [id number] [place] [address] Nov, [facility] [address] [place] [address] 09 Nov, 2014 [facility] [place] [facility] [address] [id number] [place] [address] 06 Nov, 2014 [facility] [place] [facility] [address] [id number] [place] [address] 06 Nov, 2014 [facility] [place] [facility] [address] [id number] [place] [address] 05 Nov, 2014 [facility] [place] [facility] [address] [id number] [place] [address] 05 Nov, 2014 [facility] [place] [facility] [address] [id number] [place] [address] Nov, 2014 [facility] [place] [facility] [address] [id number] [place] [address] Nov, 2014 [facility] [place] [facility] [address] [id number] [place] [address] Nov, 2014 [facility] [place] [facility] [address] [id number] [place] [address] Aug, [facility] [place] [facility] [address] [id number] [place] [address] Aug, [facility] [place] [facility] [address] [facility] [id number] [place] [address] Aug, [facility] [place] [facility] [address] [id number] [place] [address] Aug, [facility] [place] [facility] [address] [id number] [place] [address] Jul, [facility] [place] [facility] [address] [id number] [place] [address] Jul, [facility] [place] [facility] [address] [id number] [place] [address] Jun, [facility] [place] [facility] [address] [id number] [place] [address] Jun, [facility] [address] [facility] [id number] [place] [address] Jun, [facility] [address] [facility] [id number] [place] [address] Jun, [facility] [address] [facility] [id number] [place] [address] Jun, IMMUNIZATIONS No Known Immunizations SOCIAL HISTORY Never Assessed REASON FOR VISIT [facility] PLAN OF CARE VITAL SIGNS MEDICATIONS Unknown Medications RESULTS No Results PROCEDURES No Known procedures INSTRUCTIONS MEDICATIONS ADMINISTERED No Known Medications MEDICAL (GENERAL) HISTORY Type Description Date Medical History migraine headaches Medical History seizures Medical History diabetes mellitus Medical History hypertension Medical History sleep apnea 07/01 Medical History shingles Medical History stomach ulcers Surgical History hysterectomy, total with bilateral salpingo-oophorectomy (BSO) Surgical History cholecystectomy Surgical History appendectomy Surgical History portacath placement due to seizures 2007 Surgical History portacath for seizers jul 2016 Surgical History Galbladder removed february 2017 Surgical History bowel surgery-Dr. Sharp 10/01 Hospitalization History Broken Pelvis 2001 Hospitalization History seizure 11/2018
--- OUTSIDE RECORDS SUMMARY | 2019-02-10 23:44 | XMS REPORT ---
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 Active 87306344 Problem Prediabetes R73.03 Active 083304867 Problem Seizure disorder G40.909 Active 376313117 Problem Lumbago 724.2 Active 280068354 Problem Thyromegaly E01.0 Active 94995877 Problem Dysthymia F34.1 Active 22394326 ALLERGIES Substance Reaction Event Type Date Status Penicillin V Potassium Unknown Drug Allergy Jul, Active shellfish anaphylaxis Non Drug Allergy Jul, Active ENCOUNTERS Encounter Location Date Diagnosis [id number] [place] [address] Aug, [id number] [place] [address] Jul, Nail fungus B35.1 ; Lumbar radiculopathy M54.16 and Prediabetes R73.03 [id number] [place] [address] Feb, Diarrhea of presumed infectious origin R19.7 ; Nausea R11.0 and BMI 45.0-49.9, adult Z68.42 [id number] [place] [address] Oct, 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 [address] [address] Aug, Seizure disorder G40.909 ; Prediabetes R73.03 ; Dysthymia F34.1 and Thyromegaly E01.0 [address] [address] Aug, Dental caries K02.9 [place] [address] Aug, Dental examination Z01.20 [place] [address] [address] Apr, [place] [address] [address] Mar, [place] [address] [address] Mar, Other forms of epilepsy and recurrent seizures, without mention of intractable epilepsy 345.80 ; Diabetes mellitus without mention of complication, type II or unspecified type, not stated as uncontrolled 250.00 ; Lumbago 724.2 ; Hypertension 401.9 and Migraine 346.90 [place] [id number] [place] [address] Mar, [place] [id number] [place] [address] Mar, [place] [id number] [place] [address] Feb, [place] [address] [address] Dec, [facility] [id number] [place] [address] Dec, [place] [place] [address] [address] Nov, 2014 [facility] [place] [facility] [address] [id number] [place] [address] Nov, 2014 [facility] [place] [facility] [address] [id number] [place] [address] Nov, 2014 [facility] [place] [facility] [address] [id number] [place] [address] Nov, 2014 [facility] [place] [facility] [address] [id number] [place] [address] Nov, 2014 [facility] [place] [facility] [address] [id number] [place] [address] Nov, 2014 [facility] [place] [facility] [address] [id number] [place] [address] Nov, 2014 [facility] [place] [facility] [address] [id number] [place] [address] Nov, 2014 [facility] [place] [facility] [address] [id number] [place] [address] Nov, 2014 [facility] [place] [facility] [address] [id number] [place] [address] Nov, 2014 [facility] [place] [facility] [address] [id number] [place] [address] Nov, 2014 [facility] [place] [facility] [address] [id number] [place] [address] Aug, [facility] [place] [facility] [address] [id number] [address] Aug, [facility] [place] [facility] [address] [id number] [place] [address] Aug, [facility] [place] [facility] [address] [id number] [place] [address] Aug, [facility] [place] [facility] [address] [id number] [place] [address] Jul, [facility] [place] [facility] [address] [facility] [id number] [place] [address] Jul, [facility] [address] [facility] [id number] [address] Jun, [facility] [address] [id number] [address] Jun, [facility] [address] [facility] [id number] [address] Jun, [facility] [address] [facility] [id number] [address] Jun, [facility] [address] [facility] [id number] [place] [address] Jun, IMMUNIZATIONS No Known Immunizations SOCIAL HISTORY Never Assessed REASON FOR VISIT toe pain big toe left foot - swelling and some kind of infection or fungus x 6- 7 months Rabia RAMOS PLAN OF CARE Activity Details Follow Up 6 Months Reason: VITAL SIGNS Height 64 in 2018-08-13 Temperature 97.6 degrees Fahrenheit 2018-08-13 Heart Rate 96 bpm 2018-08-13 Respiratory Rate 20 2018-08-13 Blood pressure systolic 116 mmHg 2018-08-13 Blood pressure diastolic 72 mmHg 2018-08-13 MEDICATIONS Medication Instructions Dosage Frequency Start Date End Date Duration Status Gabapentin 300 MG Orally 3 times a day 1 capsule 8h 30 Jul, 2018 30 day(s) Active Metformin HCl 500 mg Orally Twice a day 1 tablet with meals 12h Aug, 30 day(s) Active Depakote 500 mg Orally 2 times a day 1 tablet 12h Active C-PAP Machine Active Levetiracetam 750 MG Orally 2 times a day 2 tablets 12h Nov, 30 days Active Promethazine HCl 25 MG Orally every 6 hrs, prn nausea 1 tab Feb, Active Lisinopril 10 MG TAKE ONE (1) TABLET BY MOUTH ONCE DAILY 90 Active Zonisamide 100 MG TAKE TWO (2) CAPSULES BY MOUTH TWICE DAILY 30 Active Keppra 750 MG TAKE TWO (2) TABLETS BY MOUTH TWICE DAILY 30 Active RESULTS No Results PROCEDURES Procedure Date Ordered Result Body Site [facility] VISIT ESTABLISHED PATIENT Aug 13, 2018 INSTRUCTIONS MEDICATIONS ADMINISTERED No Known Medications MEDICAL (GENERAL) HISTORY Type Description Date Medical History migraine headaches Medical History seizures Medical History diabetes mellitus Medical History hypertension Medical History sleep apnea 07/01 Surgical History hysterectomy, total with bilateral salpingo-oophorectomy (BSO) Surgical History cholecystectomy Surgical History appendectomy Surgical History portacath placement due to seizures 2007 Surgical History portacath for seizers jul 2016 Surgical History Galbladder removed february 2017 Surgical History bowel surgery-Dr. Sharp 10/01 Hospitalization History Broken Pelvis 2001
--- OUTSIDE RECORDS SUMMARY | 2019-02-10 23:44 | XMS REPORT ---
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0-49.9, adult Z68.42 [address] [place] [address] Oct, 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 [address] [place] [address] Aug, Seizure disorder G40.909 ; Prediabetes R73.03 ; Dysthymia F34.[address] [facility] [address] [address] 14 Aug, [address] [facility] [id number] [place] [address] 07 Aug, [address] [facility] [id number] [place] [address] Apr, [facility] [id number] [place] [address] Mar, [facility] [id number] [place] [address] Mar, Other forms of epilepsy and recurrent seizures, without mention of intractable epilepsy 345.80 ; Diabetes mellitus without mention of complication, type II or unspecified type, not stated as uncontrolled 250.00 ; Lumbago 724.2 ; Hypertension 401.[address] [facility] [id number] [place] [address] Mar, [facility] [id number] [place] [address] Mar, [facility] [id number] [place] [address] Feb, [facility] [address] [address] Dec, [facility] [id number] [place] [address] Dec, [facility] [address] [place] [address] Nov, [facility] [id number] [place] [address] Nov, [facility] [address] [place] [address] Nov, [facility] [id number] [place] [address] [place] [address] 09 Nov, 2014 [facility] [place] [facility] [address] [id number] [place] [address] 06 Nov, 2014 [facility] [place] [facility] [address] [id number] [place] [address] 06 Nov, 2014 [facility] [place] [facility] [address] [id number] [place] [address] 05 Nov, 2014 [facility] [place] [facility] [address] [id number] [place] [address] 05 Nov, 2014 [facility] [place] [facility] [address] [id number] [place] [address] Nov, 2014 [facility] [place] [facility] [address] [id number] [place] [address] Nov, 2014 [facility] [place] [facility] [address] [id number] [place] [address] Nov, 2014 [facility] [place] [facility] [address] [id number] [place] [address] Aug, [facility] [place] [facility] [address] [id number] [place] [address] Aug, [facility] [place] [facility] [address] [facility] [id number] [place] [address] Aug, [facility] [place] [facility] [address] [id number] [place] [address] Aug, [facility] [place] [facility] [address] [id number] [address] Jul, [facility] [place] [facility] [address] [id number] [place] [address] Jul, [facility] [place] [facility] [address] [id number] [place] [address] Jun, [facility] [place] [facility] [address] [id number] [place] [address] Jun, [facility] [place] [facility] [address] [facility] [id number] [place] [address] Jun, [facility] [address] [facility] [id number] [place] [address] Jun, [facility] [address] [facility] [id number] [place] [address] Jun, IMMUNIZATIONS No Known Immunizations SOCIAL HISTORY Never Assessed REASON FOR VISIT Diarrhea 5-6 times/day x 2 weeks, stomach cramps, fever, temp max 101-----DBenne ttRN PLAN OF CARE Activity Details Follow Up Will call after lab Reason: VITAL SIGNS Height 64 in 2018-02-22 Weight 285 lbs 2018-02-22 Temperature 98.4 degrees Fahrenheit 2018-02-22 Heart Rate 90 bpm 2018-02-22 Respiratory Rate 20 2018-02-22 BMI 48.91 kg/m2 2018-02-22 Blood pressure systolic 134 mmHg 2018-02-22 Blood pressure diastolic 72 mmHg 2018-02-22 MEDICATIONS Medication Instructions Dosage Frequency Start Date End Date Duration Status Depakote 500 mg Orally 2 times a day 1 tablet 12h Active Lisinopril 10 mg Orally Once a day 1 tablet 24h Nov, Active Duloxetine HCl 60 mg Orally Once a day 1 capsule 24h Mar, 30 days Active Promethazine HCl 25 MG Orally every 6 hrs, prn nausea 1 tab Feb, Active Levetiracetam 750 MG Orally 2 times a day 2 tablets 12h Nov, 30 days Active Zonisamide 100 MG Orally Twice a day 2 capsules 12h Nov, 30 days Active Metformin HCl 500 mg Orally Twice a day 1 tablet with meals 12h Aug, 30 day(s) Active RESULTS No Results PROCEDURES Procedure Date Ordered Result Body Site [facility] VISIT ESTABLISHED PATIENT February 22, 2018 INSTRUCTIONS MEDICATIONS ADMINISTERED No Known Medications MEDICAL (GENERAL) HISTORY Type Description Date Medical History migraine headaches Medical History seizures Medical History diabetes mellitus Medical History hypertension Surgical History hysterectomy, total with bilateral salpingo-oophorectomy (BSO) Surgical History cholecystectomy Surgical History appendectomy Surgical History portacath placement due to seizures 2007 Surgical History portacath for seizers jul 2016 Surgical History Galbladder removed february 2017 Surgical History bowel surgery-Dr. Sharp 10/01 Hospitalization History Broken Pelvis 2001
--- OUTSIDE RECORDS SUMMARY | 2019-02-10 23:44 | XMS REPORT | Clinical Summary ---
Author Author [facility] Address Unknown Phone Unavailable Care Team Providers Care Headlight Adjuster Name Role Phone Luiz Solano MD PP Unavailable Allergies Comments Active Allergy Reactions Severity Noted Date Penicillins Rash Medium 05/09/2011 Medications End Date Status Medication Sig Dispensed Refills Start Date Active duloxetine (CYMBALTA) 30 Take 60 mg by 0 MG capsule mouth daily. Active zonisamide (ZONEGRAN) 100 Take 200 mg 0 201 MG capsuleIndications: by mouth 2 1 Seizure (two) times daily. Indications: Seizure Active levETIRAcetam (KEPPRA) Take 750 mg 0 250 MG tablet by mouth 2 (two) times daily. Active estrogens, conjugated, Take 1.25 mg 0 (PREMARIN) 1.25 MG tablet by mouth daily. Active lisinopril Take 20 mg by 0 (PRINIVIL,ZESTRIL) 20 MG mouth daily. tablet Active ARIPiprazole (ABILIFY) 10 Take 5 mg by 0 MG tablet mouth daily. Active hydrOXYzine (VISTARIL) 50 Take 50 mg by 0 MG capsule mouth every evening. Active Problems Problem Noted Date Suicidal ideation 05/20/2011 Seizure disorder 05/20/2011 Major depressive disorder, recurrent episode, severe, without mention of 05/20/2011 psychotic behavior Family History Medical History Relation Name Comments Cancer Father ALANA ZENG Heart disease Father ALANA ZENG Hypertension Father ALANA ZENG Mental illness Sister MIL SLUSSER Mental illness Sister MICHAEL HERRMANN Relation Name Status Comments Father ALANA Alive KARRI Sister MIL SLUSSER Alive Sister MICHAEL Alive SLEDWINALER Social History Date Tobacco Use Types Packs/Day Years Used Current Every Day Smoker 3 Comments: Smoking History Packs/day: Daily/Cigars/3 cigars Alcohol Use Drinks/Week oz/Week Comments No Sex Assigned at Date Recorded Not on file Industry Job Start Date Occupation Not on file Not on file Not on file Travel End Travel History Travel Start No recent travel history available. Last Filed Vital Signs Time Taken Vital Sign Reading 01/09/2012 1:04 AM CDT Blood Pressure 94/77 01/09/2012 1:04 AM CDT Pulse 85 01/08/2012 9:54 PM CDT Temperature 36.8 C (98.2 F) 01/08/2012 9:54 PM CDT Respiratory Rate 20 01/09/2012 1:04 AM CDT Oxygen Saturation 94% - Inhaled Oxygen - Concentration 01/08/2012 9:54 PM CDT Weight 104.3 kg (230 lb) 01/08/2012 9:54 PM CDT Height 160 cm (5' 3") 01/08/2012 9:54 PM CDT Body Mass Index 40.74 Plan of Treatment Health Maintenance Due Date Last Done Comments Varicella Vaccines (1 of 1985 2 - 13+ 2-dose series) DTaP,Tdap,and Td Vaccines 11/25/1991 (1 - Tdap) MMR Vaccines-Adult 11/25/1991 CERVICAL CANCER SCREENING 1993 Influenza Vaccine (Season 05/15/2019 Ended) Results Not on filefrom Last 3 Months Advance Directives Patient has advance care planning documents on file. For more information, arnaldo vega contact: [address] [phone]
--- OUTSIDE RECORDS SUMMARY | 2019-02-10 23:45 | XMS REPORT ---
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 Active 10451535 Problem Prediabetes R73.03 Active 968087477 Problem Seizure disorder G40.909 Active 315412896 Problem Lumbago 724.2 Active 744237524 Problem Thyromegaly E01.0 Active 95214079 Problem Dysthymia F34.1 Active 75002183 ALLERGIES No Information ENCOUNTERS Encounter Location Date Diagnosis [place] [id number] [place] [address] Feb, Diarrhea of presumed infectious origin R19.7 ; Nausea R11.0 and BMI 45.0-49.9, adult Z68.42 [place] [id number] [place] [address] Oct, 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 [place] [id number] [place] [address] Oct, [place] [id number] [place] [address] Sep, Hypertension 401.9 [place] [id number] [place] [address] Aug, Seizure disorder G40.909 ; Prediabetes R73.03 ; Dysthymia F34.1 and Thyromegaly E01.0 [place] [id number] [place] [address] 14 Aug, 2016 Dental caries K02.9 [facility] [address], [place] [address] Aug, Dental examination Z01.20 [facility] [address], [place] [address] Apr, [facility] [address], [place] [address] Mar, [facility] [id number] [place] [address] Mar, Other forms of epilepsy and recurrent seizures, without mention of intractable epilepsy 345.80 ; Diabetes mellitus without mention of complication, type II or unspecified type, not stated as uncontrolled 250.00 ; Lumbago 724.2 ; Hypertension 401.9 and Migraine 346.90 [facility] [address], [place] [address] Mar, [facility] [address], [place] [address] Mar, [facility] [address], [place] [address] Feb, [facility] [address], [place] [address] Dec, [facility] [address], [place] [address] Dec, [facility] [address], [place] [address] Nov, [facility] [address], [place] [address] Nov, [facility] [address], [place] [address] Nov, [facility] [address], [place] [address] Nov, [facility] [id number] [place] [address] 06 Nov, 2014 [facility] [place] [facility] [address] [id number] [place] [address] 06 Nov, 2014 [facility] [place] [facility] [address] [id number] [place] [address] 05 Nov, 2014 [facility] [place] [facility] [address] [id number] [place] [address] 05 Nov, 2014 [facility] [place] [facility] [address] [id number] [place] [address] 04 Nov, 2014 [facility] [place] [facility] [address] [id number] [place] [address] Nov, 2014 [facility] [place] [facility] [address] [id number] [place] [address] Nov, 2014 [facility] [place] [facility] [address] [facility] [id number] [place] [address] Aug, [facility] [place] [facility] [address] [id number] [place] [address] Aug, [facility] [place] [facility] [address] [facility] [id number] [place] [address] Aug, [facility] [place] [facility] [address] [facility] [id number] [place] [address] Aug, [facility] [place] [facility] [address] [id number] [place] [address] Jul, [facility] [place] [facility] [address] [id number] [place] [address] Jul, [facility] [place] [facility] [address] [id number] [place] [address] Jun, [facility] [place] [facility] [address] [facility] [id number] [place] [address] Jun, [facility] [place] [facility] [address] [facility] [id number] [place] [address] Jun, [facility] [address] [facility] [id number] [place] [address] Jun, [facility] [address] [facility] [id number] [place] [address] Jun, IMMUNIZATIONS No Known Immunizations SOCIAL HISTORY Never Assessed REASON FOR VISIT PLAN OF CARE VITAL SIGNS MEDICATIONS Unknown [...]
--- OUTSIDE RECORDS SUMMARY | 2019-02-10 23:45 | XMS REPORT ---
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 Active 33435155 Problem Prediabetes R73.03 Active 919923576 Problem Seizure disorder G40.909 Active 440150906 Problem Lumbago 724.2 Active 421371663 Problem Thyromegaly E01.0 Active 12311895 Problem Dysthymia F34.1 Active 50572591 ALLERGIES No Information ENCOUNTERS Encounter Location Date Diagnosis [place] [id number] [place] [address] Feb, Diarrhea of presumed infectious origin R19.7 ; Nausea R11.0 and BMI 45.0-49.9, adult Z68.42 [place] [id number] [place] [address] Oct, 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 [place] [id number] [place] [address] Oct, [place] [id number] [place] [address] Sep, Hypertension 401.9 [place] [id number] [place] [address] Aug, Seizure disorder G40.909 ; Prediabetes R73.03 ; Dysthymia F34.1 and Thyromegaly E01.0 [place] [id number] [place] [address] 14 Aug, 2016 Dental caries K02.9 [facility] [address], [place] [address] Aug, Dental examination Z01.20 [facility] [address], [place] [address] Apr, [facility] [address], [place] [address] Mar, [facility] [id number] [place] [address] Mar, Other forms of epilepsy and recurrent seizures, without mention of intractable epilepsy 345.80 ; Diabetes mellitus without mention of complication, type II or unspecified type, not stated as uncontrolled 250.00 ; Lumbago 724.2 ; Hypertension 401.9 and Migraine 346.90 [facility] [address], [place] [address] Mar, [facility] [address], [place] [address] Mar, [facility] [address], [place] [address] Feb, [facility] [address], [place] [address] Dec, [facility] [address], [place] [address] Dec, [facility] [address], [place] [address] Nov, [facility] [address], [place] [address] Nov, [facility] [address], [place] [address] Nov, [facility] [address], [place] [address] Nov, [facility] [id number] [place] [address] 06 Nov, 2014 [facility] [place] [facility] [address] [id number] [place] [address] 06 Nov, 2014 [facility] [place] [facility] [address] [id number] [place] [address] 05 Nov, 2014 [facility] [place] [facility] [address] [id number] [place] [address] 05 Nov, 2014 [facility] [place] [facility] [address] [id number] [place] [address] 04 Nov, 2014 [facility] [place] [facility] [address] [id number] [place] [address] Nov, 2014 [facility] [place] [facility] [address] [id number] [place] [address] Nov, 2014 [facility] [place] [facility] [address] [facility] [id number] [place] [address] Aug, [facility] [place] [facility] [address] [id number] [place] [address] Aug, [facility] [place] [facility] [address] [facility] [id number] [place] [address] Aug, [facility] [place] [facility] [address] [facility] [id number] [place] [address] Aug, [facility] [place] [facility] [address] [id number] [place] [address] Jul, [facility] [place] [facility] [address] [id number] [place] [address] Jul, [facility] [place] [facility] [address] [id number] [place] [address] Jun, [facility] [place] [facility] [address] [facility] [id number] [place] [address] Jun, [facility] [place] [facility] [address] [facility] [id number] [place] [address] Jun, [facility] [address] [facility] [id number] [place] [address] Jun, [facility] [address] [facility] [id number] [place] [address] Jun, IMMUNIZATIONS No Known Immunizations SOCIAL HISTORY Never Assessed REASON FOR VISIT Refill request PLAN OF CARE VITAL SIGNS MEDICATIONS Medication Instructions Dosage Frequency Start Date End Date Duration Status Lisinopril 10 mg Orally Once a day 1 tablet 24h Nov, Active RESULTS No Results PROCEDURES No Known procedures [...]
--- OUTSIDE RECORDS SUMMARY | 2019-02-10 23:45 | XMS REPORT ---
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 Active 96827627 Problem Prediabetes R73.03 Active 120932932 Problem Seizure disorder G40.909 Active 273416230 Problem Lumbago 724.2 Active 721261432 Problem Thyromegaly E01.0 Active 53395390 Problem Dysthymia F34.1 Active 73893604 ALLERGIES Substance Reaction Event Type Date Status Penicillin V Potassium Unknown Drug Allergy Aug, Active shellfish anaphylaxis Non Drug Allergy Aug, Active ENCOUNTERS Encounter Location Date Diagnosis [place] [address] [place] [address] Feb, Diarrhea of presumed infectious origin R19.7 ; Nausea R11.0 and BMI 45.0-49.9, adult Z68.42 [place] [address] [place] [address] Oct, 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 [facility] [address] [place] [address] Oct, [place] [address] [id number] [place] [address] Sep, Hypertension 401.9 [place] [address] [place] [address] Aug, Seizure disorder G40.909 ; Prediabetes R73.03 ; Dysthymia F34.1 and Thyromegaly E01.0 [facility] [address], [place] [address] 14 Aug, 2016 Dental caries K02.9 [facility] [id number] [place] [address] 07 Aug, 2016 Dental examination Z01.20 [facility] [id number] [place] [address] Apr, [facility] [id number] [place] [address] Mar, [facility] [id number] [place] [address] Mar, Other forms of epilepsy and recurrent seizures, without mention of intractable epilepsy 345.80 ; Diabetes mellitus without mention of complication, type II or unspecified type, not stated as uncontrolled 250.00 ; Lumbago 724.2 ; Hypertension 401.9 and Migraine 346.90 [facility] [id number] [place] [address] Mar, [facility] [id number] [place] [address] Mar, [facility] [id number] [place] [address] Feb, [facility] [address], [place] [address] Dec, [facility] [id number] [place] [address] Dec, [facility] [address] [place] [address] Nov, [facility] [id number] [place] [address] Nov, [facility] [address] [place] [address] Nov, [facility] [address] [id number] [place] [address] [place] [address] 09 Nov, 2014 [facility] [place] [facility] [address] [id number] [place] [address] 06 Nov, 2014 [facility] [place] [facility] [address] [id number] [place] [address] 06 Nov, 2014 [facility] [place] [facility] [address] [id number] [place] [address] 05 Nov, 2014 [facility] [place] [facility] [address] [id number] [place] [address] 05 Nov, 2014 [facility] [place] [facility] [address] [id number] [place] [address] Nov, 2014 [facility] [place] [facility] [address] [id number] [place] [address] Nov, 2014 [facility] [place] [facility] [address] [id number] [place] [address] Nov, 2014 [facility] [place] [facility] [address] [id number] [place] [address] Aug, [facility] [place] [facility] [address] [id number] [place] [address] Aug, [facility] [place] [facility] [address] [facility] [id number] [place] [address] Aug, [facility] [place] [facility] [address] [id number] [place] [address] Aug, [facility] [place] [facility] [address] [id number] [address] Jul, [facility] [place] [facility] [address] [id number] [place] [address] Jul, [facility] [place] [facility] [address] [id number] [place] [address] Jun, [facility] [place] [facility] [address] [id number] [place] [address] Jun, [facility] [place] [facility] [address] [facility] [id number] [place] [address] Jun, [facility] [address] [facility] [id number] [place] [address] Jun, [facility] [address] [facility] [id number] [place] [address] Jun, IMMUNIZATIONS No Known Immunizations SOCIAL HISTORY Never Assessed REASON FOR VISIT Establish Care, PT is epileptic with problems with her BP and DM-Aldair RAMOS, PT was seeing Dr. Wilkerson in [facility] Activity Details Follow Up 4 Months Reason: VITAL SIGNS Height 64 in 2017-09-10 Weight 303.5 lbs 2017-09-10 Temperature 98.5 degrees Fahrenheit 2017-09-10 Heart Rate 76 bpm 2017-09-10 Respiratory Rate 20 2017-09-10 BMI 52.09 kg/m2 2017-09-10 Blood pressure systolic 144 mmHg 2017-09-10 Blood pressure diastolic 86 mmHg 2017-09-10 MEDICATIONS Medication Instructions Dosage Frequency Start Date End Date Duration Status metformin Active Levetiracetam 750 MG Orally 2 times a day 2 tablets 12h Nov, 30 days Active Duloxetine HCl 60 mg Orally Once a day 1 capsule 24h Mar, 30 days Active Metformin HCl 500 mg Orally Twice a day 1 tablet with meals h Aug, 30 day(s) Active Lisinopril 10 MG Orally Once a day take 1 tablet by Oral route 1 time per day at bedtime 24h Nov, 30 days Active Zonisamide 100 MG Orally Twice a day 2 capsules 12h Nov, 30 days Active RESULTS Name Result Date Reference Range A1C (IN HOUSE) 2017-09-10 A1C IN HOUSE 6.1 4.3 - 5.6 % Previous A1c 5.7 Lot [id number] Exp date 04/2019 Ultrasound : Thyroid 2017-09-16 PROCEDURES Procedure Date Ordered Result Body Site [facility] VISIT ESTABLISHED PATIENT Sep 10, 2017 GLYCATED HEMOGLOBIN TEST Sep 10, 2017 INSTRUCTIONS MEDICATIONS ADMINISTERED No Known Medications MEDICAL [...]
--- OUTSIDE RECORDS SUMMARY | 2019-02-10 23:45 | XMS REPORT ---
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 Active 39045747 Problem Dysthymia F34.1 Active 22408645 ALLERGIES No Information ENCOUNTERS Encounter Location Date Diagnosis [place] [id number] [place] [address] Feb, Diarrhea of presumed infectious origin R19.7 ; Nausea R11.0 and BMI 45.0-49.9, adult Z68.42 [place] [id number] [place] [address] Oct, 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 [place] [id number] [place] [address] Oct, [place] [id number] [place] [address] Sep, Hypertension 401.9 [place] [id number] [place] [address] Aug, Seizure disorder G40.909 ; Prediabetes R73.03 ; Dysthymia F34.1 and Thyromegaly E01.0 [place] [id number] [place] [address] 14 Aug, 2016 Dental caries K02.9 [facility] [id number] [address] Aug, Dental examination Z01.20 [facility] [id number] [address] Apr, [facility] [id number] [address] Mar, [facility] [id number] [place] [address] Mar, Other forms of epilepsy and recurrent seizures, without mention of intractable epilepsy 345.80 ; Diabetes mellitus without mention of complication, type II or unspecified type, not stated as uncontrolled 250.00 ; Lumbago 724.2 ; Hypertension 401.9 and Migraine 346.90 [facility] [id number] [address] Mar, [facility] [id number] [address] Mar, [facility] [id number] [address] Feb, [facility] [id number] [address] Dec, [facility] [id number] [address] Dec, [facility] [id number] [address] Nov, [facility] [id number] [address] Nov, [facility] [id number] [address] Nov, [facility] [id number] [address] Nov, [facility] [id number] [place] [address] 06 Nov, 2014 [facility] [place] [facility] [address] [id number] [place] [address] 06 Nov, 2014 [facility] [place] [facility] [address] [id number] [place] [address] 05 Nov, 2014 [facility] [place] [facility] [address] [id number] [place] [address] 05 Nov, 2014 [facility] [place] [facility] [address] [id number] [place] [address] 04 Nov, 2014 [facility] [place] [facility] [address] [id number] [place] [address] Nov, 2014 [facility] [place] [facility] [address] [id number] [place] [address] Nov, 2014 [facility] [place] [facility] [address] [facility] [id number] [place] [address] Aug, [facility] [place] [facility] [address] [id number] [place] [address] Aug, [facility] [place] [facility] [address] [facility] [id number] [place] [address] Aug, [facility] [place] [facility] [address] [facility] [id number] [place] [address] Aug, [facility] [place] [facility] [address] [id number] [place] [address] Jul, [facility] [place] [facility] [address] [id number] [place] [address] Jul, [facility] [place] [facility] [address] [id number] [place] [address] Jun, [facility] [place] [facility] [address] [facility] [id number] [place] [address] Jun, [facility] [place] [facility] [address] [facility] [id number] [place] [address] Jun, [facility] [address] [facility] [id number] [place] [address] Jun, [facility] [address] [facility] [id number] [place] [address] Jun, IMMUNIZATIONS No Known Immunizations SOCIAL HISTORY Never Assessed REASON FOR VISIT Refferal PLAN OF CARE VITAL SIGNS MEDICATIONS Unknown [...]
--- OUTSIDE RECORDS SUMMARY | 2019-02-10 23:47 | XMS REPORT | Continuity of Care Document ---
Author Organization Unknown Address Unknown Allergies Active Description Code Type Severity Reaction Onset Reported/Identified Relationship to Patient Clinical Status Yes PENICILLINS 26 Drug Class Med Rash 05/09/2011 Yes Penicillins Drug Allergy N/A N/A 07/14/2014 Yes Penicillins [id number] Drug Allergy Unknown N/A 09/17/2017 Yes Penicillins [id number] Drug Allergy Unknown Pt has received 09/18/2017 Yes sulfamethoxazole [id number] Drug Allergy Unknown N/A 11/29/2018 Yes trimethoprim [id number] Drug Allergy Unknown N/A 11/29/2018 Medications There is no data. Problems Date Dx Coded Attending Type Code Diagnosis Diagnosed By 04/26/2007 Ot 345.90 04/26/2007 Ot V58.81 09/16/2007 Ot 345.90 09/16/2007 Ot V58.81 02/12/2010 Ot 780.39 OTHER CONVULSIONS 02/12/2010 Ot V58.81 FIT/ADJ VASCULAR CATHETER 11/06/2013 HOANG JESUS DO Ot V58.81 FIT/ADJ VASCULAR CATHETER 02/21/2014 JERRICA ARELLANO, LEESA Myers Ot 401.9 HYPERTENSION NOS 02/21/2014 LEESA BECERRIL MD Ot 840.9 SPRAIN SHOULDER/ARM NOS 02/21/2014 LEESA BECERRIL MD Ot 923.00 CONTUSION SHOULDER REG 02/21/2014 LEESA BECERRIL MD Ot E885.9 FALL FROM SLIPPING, TRIPPING, OR STUMBLI 06/26/2014 GABY FORREST Ot V70.0 ROUTINE MEDICAL EXAM 07/14/2014 SARAH GONZALEZ APRN 250.00 DIABETES MELLITUS WITHOUT MENTION OF COMPLICATION TYPE II OR UNSPECIFIED TYPE NOT STATED UNCONTROLLED 07/14/2014 SARAH GONZALEZ APRN R 278.00 OBESITY 07/14/2014 SARAH GONZALEZ APRN 345.80 OTHER FORMS OF EPILEPSY AND RECURRENT SEIZURES WITHOUT MENTION OF INTRACTABLE EPILEPSY 07/14/2014 CARLOS CARDIAC RN, SARAH R 250.00 DIABETES MELLITUS WITHOUT MENTION OF COMPLICATION TYPE II OR UNSPECIFIED TYPE NOT STATED UNCONTROLLED 07/14/2014 CARLOS CARDIAC RN SARAH R 278.00 OBESITY 07/14/2014 CARLOS CARDIAC RN, SARAH R 345.80 OTHER FORMS OF EPILEPSY AND RECURRENT SEIZURES WITHOUT MENTION OF INTRACTABLE EPILEPSY 07/14/2014 CARLOS CARDIAC RN, SARAH R 250.00 DIABETES MELLITUS WITHOUT MENTION OF COMPLICATION TYPE II OR UNSPECIFIED TYPE NOT STATED UNCONTROLLED 07/14/2014 CARLOS CARDIAC RN SARAH R 278.00 OBESITY 07/14/2014 CARLOS CARDIAC RN SARAH R 345.80 OTHER FORMS OF EPILEPSY AND RECURRENT SEIZURES WITHOUT MENTION OF INTRACTABLE EPILEPSY 08/17/2014 CARLOS FOREMANN SARAH R 780.60 FEVER, UNSPECIFIED 08/17/2014 CARLOS CARDIAC RN SARAH R 780.79 OTHER MALAISE AND FATIGUE 08/17/2014 CARLOS FOREMANN SARAH R 780.60 FEVER, UNSPECIFIED 08/17/2014 CARLOS WOOD SARAH R 780.79 OTHER MALAISE AND FATIGUE 08/17/2014 Ot 780.79 08/17/2014 Ot 791.9 08/17/2014 Ot 786.3 08/17/2014 Ot 250.00 08/17/2014 Ot 272.4 08/17/2014 Ot 611.72 08/17/2014 Ot V16.3 08/17/2014 Ot 593.9 08/17/2014 Ot 250.00 08/17/2014 Ot 272.4 08/17/2014 HOANG JESUS DO Ot 250.00 08/17/2014 [facility] HOANG MEDEROS Ot 272.0 08/17/2014 [facility] HOANG MEDEROS Ot 780.39 08/17/2014 [facility] HOANG MEDEROS Ot 571.8 08/17/2014 JORGE GONZALEZINA R CARDIAC RN Ot V58.81 08/17/2014 JORGE GONZALEZINA R CARDIAC RN Ot V58.81 08/17/2014 JORGE GONZALEZINA R CARDIAC RN Ot V58.81 08/17/2014 CARLOS SARAH R CARDIAC RN Ot V58.81 08/17/2014 CARLOS SARAH R CARDIAC RN Ot V58.81 08/18/2014 JORGE GONZALEZINA R CARDIAC RN Ot V58.81 08/23/2014 CARLOS, SARAH R CARDIAC RN Ot V58.81 08/31/2014 CARLOS SARAH WOOD R 996.74 OTHER COMPLICATIONS DUE TO OTHER VASCULAR DEVICE IMPLANT AND GRAFT 11/15/2014 SARAH GONZALEZ APRN Ot V58.81 FIT/ADJ VASCULAR CATHETER 12/14/2014 Ot V76.12 12/25/2014 Ot V76.12 12/26/2014 HOANG JESUS DO Ot 571.8 04/05/2015 Ot 611.72 04/05/2015 Ot V16.3 04/05/2015 Ot 593.9 04/05/2015 Ot 250.00 04/05/2015 Ot 272.4 04/05/2015 GELLENDER HOANG MEDEROS Ot 250.00 04/05/2015 GELLENDER , HOANG Gutierrez Ot 272.0 04/05/2015 GELLENDER HOANG MEDEROS Ot 780.39 04/05/2015 HOANG JESUS DO Ot 571.8 04/05/2015 Ot V58.81 04/05/2015 Ot V76.12 04/05/2015 DOMI BURTON DO Ot 250.00 DIAB BARRY WO COMPL, TYPE II OR UNSPEC TY 04/05/2015 DOMI BURTON DO Ot 339.10 TENSION TYPE HEADACHE, UNSPECIFIED 04/05/2015 DOMI BURTON DO Ot 784.0 HEADACHE 04/05/2015 DOMI BURTON DO Ot V58.69 OT MED,LT,CURRENT USE 04/30/2015 Ot 611.72 04/30/2015 Ot V16.3 04/30/2015 Ot 593.9 04/30/2015 HOANG JESUS DO Ot 250.00 04/30/2015 HOANG JESUS DO Ot 272.0 04/30/2015 GELLENDER HOANG MEDEROS Ot 780.39 04/30/2015 Ot V58.81 05/02/2015 ERIC [...] ARELLANO, JIHAN Ramos Ot V72.84 05/07/2015 ERIC ARELLANO, JIHAN Ramos Ot V74.8 07/18/2016 ERIC ARELLANO, JIHAN [...] ENCOUNTER FOR SCREENING FOR OTHER BACTER 09/14/2016 HOANG JESUS DO Ot V58.81 FIT/ADJ VASCULAR CATHETER 10/15/2016 GELNAMDER DOHOANG Ot V58.81 FIT/ADJ VASCULAR CATHETER 03/14/2017 GELLENDER DOHOANG Ot V58.81 FIT/ADJ VASCULAR CATHETER 08/31/2017 GELLENDER HOANG MEDEROS Ot 250.00 DIAB BARRY WO COMPL, TYPE II OR UNSPEC TY 08/31/2017 OZZIEDER HOANG MEDEROS Ot 272.0 PURE HYPERCHOLESTEROLEM 08/31/2017 GELLENDER HOANG MEDEROS Ot 780.39 OTHER CONVULSIONS 08/31/2017 OZZIEDER DOHOANG Ot 571.8 CHRONIC LIVER DIS NEC 08/31/2017 Ot V58.81 FIT/ADJ VASCULAR CATHETER 08/31/2017 Ot V76.12 OTH SCREEN MAMMO- MALIGN NEOPLASM OF [place] 08/31/2017 JIHAN REYES MD Ot 345.90 EPILEPSY UNSPEC W/O MENTION INTRACTABLE 08/31/2017 JIHAN REYES MD Ot 459.81 VENOUS INSUFFICIENCY NOS 08/31/2017 JIHAN REYES MD Ot 996.1 MALFUNC VASC DEVICE/TOYA 08/31/2017 JIHAN REYES MD Ot V72.84 EXAM PRE-OPERATIVE NOS 08/31/2017 JIHAN REYES MD Ot V74.8 SCREEN-BACTERIAL DIS NEC 08/31/2017 GELLENDER DO, HOANG Gutierrez Ot 250.00 DIAB BARRY WO COMPL, TYPE II OR UNSPEC TY 08/31/2017 GELLENDER DO, HOANG Gutierrez Ot 272.0 PURE HYPERCHOLESTEROLEM 08/31/2017 GELLENDER DO, HOANG Gutierrez Ot 780.39 OTHER CONVULSIONS 08/31/2017 GELLENDER DO, HOANG Gutierrez Ot 571.8 CHRONIC LIVER DIS NEC 08/31/2017 Ot V58.81 FIT/ADJ VASCULAR CATHETER 08/31/2017 Ot V76.12 OTH SCREEN MAMMO- MALIGN NEOPLASM OF [place] 08/31/2017 JIHAN REYES MD Ot 345.90 EPILEPSY UNSPEC W/O MENTION INTRACTABLE 08/31/2017 JIHAN REYES MD Ot 459.81 VENOUS INSUFFICIENCY NOS 08/31/2017 JIHAN REYES MD Ot 996.1 MALFUNC VASC DEVICE/TOYA 08/31/2017 JIHAN REYES MD Ot V72.84 EXAM PRE-OPERATIVE NOS 08/31/2017 JIHAN REYES MD Ot V74.8 SCREEN-BACTERIAL DIS NEC 09/01/2017 Ot E11.9 TYPE 2 DIABETES MELLITUS WITHOUT COMPLIC 09/01/2017 Ot E66.9 OBESITY, UNSPECIFIED 09/01/2017 Ot F32.9 MAJOR DEPRESSIVE DISORDER, SINGLE EPISOD 09/01/2017 Ot I10 ESSENTIAL (PRIMARY) HYPERTENSION 09/01/2017 Ot M40.56 LORDOSIS, UNSPECIFIED, LUMBAR REGION 09/01/2017 Ot Z86.19 PERSONAL HISTORY OF OTHER INFECTIOUS AND 09/01/2017 Ot Z87.19 PERSONAL HISTORY OF OTHER DISEASES OF TH 09/01/2017 Ot E11.9 TYPE 2 DIABETES MELLITUS WITHOUT COMPLIC 09/01/2017 Ot E66.9 OBESITY, UNSPECIFIED 09/01/2017 Ot F32.9 MAJOR DEPRESSIVE DISORDER, SINGLE EPISOD 09/01/2017 Ot I10 ESSENTIAL (PRIMARY) HYPERTENSION 09/01/2017 Ot M40.56 LORDOSIS, UNSPECIFIED, LUMBAR REGION 09/01/2017 Ot Z86.19 PERSONAL HISTORY OF OTHER INFECTIOUS AND 09/01/2017 Ot Z87.19 PERSONAL HISTORY OF OTHER DISEASES OF 09/16/2017 EDIN MEDEROS, HOANG Gutierrez Ot 250.00 DIAB BARRY WO COMPL, TYPE II OR UNSPEC TY 09/16/2017 KRISTENLENSINGH, HOANG Gutierrez Ot 272.0 PURE HYPERCHOLESTEROLEM 09/16/2017 GELLENDER DO, HOANG Gutierrez Ot 780.39 OTHER CONVULSIONS 09/16/2017 GELLENDER DO, HOANG Gutierrez Ot 571.8 CHRONIC LIVER DIS NEC 09/16/2017 Ot V58.81 FIT/ADJ VASCULAR CATHETER 09/16/2017 Ot V76.12 OTH SCREEN MAMMO- MALIGN NEOPLASM OF [place] 09/16/2017 ERIC ARELLANO, JIHAN Ramos Ot 345.90 EPILEPSY UNSPEC W/O MENTION INTRACTABLE 09/16/2017 ERIC ARELLANO, JIHAN Ramos Ot 459.81 VENOUS INSUFFICIENCY NOS 09/16/2017 ERIC ARELLANO, JIHAN Ramos Ot 996.1 MALFUNC VASC DEVICE/TOYA 09/16/2017 ERIC ARELLANO, JIHAN Ramos Ot V72.84 EXAM PRE-OPERATIVE NOS 09/16/2017 ERIC ARELLANO, JIHAN Ramos Ot V74.8 SCREEN-BACTERIAL DIS NEC 09/16/2017 Ot E11.9 TYPE 2 DIABETES MELLITUS WITHOUT COMPLIC 09/16/2017 Ot E66.9 OBESITY, UNSPECIFIED 09/16/2017 Ot F32.9 MAJOR DEPRESSIVE DISORDER, SINGLE EPISOD 09/16/2017 Ot I10 ESSENTIAL (PRIMARY) HYPERTENSION 09/16/2017 Ot M40.56 LORDOSIS, UNSPECIFIED, LUMBAR REGION 09/16/2017 Ot Z86.19 PERSONAL HISTORY OF OTHER INFECTIOUS AND 09/16/2017 Ot Z87.19 PERSONAL HISTORY OF OTHER DISEASES OF 09/17/2017 ERIC ARELLANO, JIHAN Ramos Ot T82.9XXA UNSP COMP OF CARDIAC AND VASCULAR PROSTH 09/17/2017 ERIC ARELLANO, JIHAN Ramos Ot Z01.818 ENCOUNTER FOR OTHER PREPROCEDURAL EXAMIN 09/17/2017 Ot V58.81 FIT/ADJ VASCULAR CATHETER 09/17/2017 ZONIA ARELLANO, JOSE DE JESUS Smith Ot E01.0 IODINE-DEFICIENCY RELATED DIFFUSE (ENDEM 09/18/2017 Ot V58.81 FIT/ADJ VASCULAR CATHETER 09/18/2017 JIHAN REYES MD, Ot E11.9 TYPE 2 DIABETES MELLITUS WITHOUT COMPLIC 09/18/2017 JIHAN REYES MD, Ot E66.01 MORBID (SEVERE) OBESITY DUE TO EXCESS CA 09/18/2017 JIHAN REYES MD, Ot G43.909 MIGRAINE, UNSP, NOT INTRACTABLE, WITHOUT 09/18/2017 JIHAN REYES MD Ot I10 ESSENTIAL (PRIMARY) HYPERTENSION 09/18/2017 JIHAN REYES MD, Ot R56.9 UNSPECIFIED CONVULSIONS 09/18/2017 JIHAN REYES MD, Ot Z08 ENCNTR FOR FOLLOW-UP EXAM AFTER TRTMT FO 09/18/2017 JIHAN REYES MD, Ot Z45.2 ENCOUNTER FOR ADJUSTMENT AND MANAGEMENT 09/18/2017 JIHAN REYES MD, Ot Z68.43 BODY MASS INDEX (BMI) 50-59.9 , ADULT 09/18/2017 JIHAN REYES MD Ot Z79.84 SEAMER ELASTIC BAND (CURRENT) USE OF ORAL HYPOGLYC 09/18/2017 JIHAN REYES MD, Ot Z79.899 OTHER HALFWAY (CURRENT) DRUG THERAPY 09/18/2017 JIHAN REYES MD Ot Z85.3 PERSONAL HISTORY OF MALIGNANT NEOPLASM O 09/21/2017 JIHAN REYES MD, Ot E11.9 TYPE 2 DIABETES MELLITUS WITHOUT COMPLIC 09/21/2017 JIHAN REYES MD Ot E66.01 MORBID (SEVERE) OBESITY DUE TO EXCESS CA 09/21/2017 JIHAN REYES MD, Ot G43.909 MIGRAINE, UNSP, NOT INTRACTABLE, WITHOUT 09/21/2017 JIHAN REYES MD Ot I10 ESSENTIAL (PRIMARY) HYPERTENSION 09/21/2017 JIHAN REYES MD, Ot R56.9 UNSPECIFIED CONVULSIONS 09/21/2017 JIHAN REYES MD Ot Z08 ENCNTR FOR FOLLOW-UP EXAM AFTER TRTMT FO 09/21/2017 JIHAN REYES MD Ot Z45.2 ENCOUNTER FOR ADJUSTMENT AND MANAGEMENT 09/21/2017 JIHAN REYES MD, Ot Z68.43 BODY MASS INDEX (BMI) 50-59.9 , ADULT 09/21/2017 JIHAN REYES MD, Ot Z79.84 HALFWAY (CURRENT) USE OF ORAL HYPOGLYC 09/21/2017 ERIC ARELLANO, JIHAN Ramos Ot Z79.899 OTHER HALFWAY (CURRENT) DRUG THERAPY 09/21/2017 ERIC ARELLANO, JIHAN Ramos Ot Z85.3 PERSONAL HISTORY OF MALIGNANT NEOPLASM O 10/14/2017 ZONIA ARELLANO, JOSE DE JESUS Smith Ot E01.0 IODINE-DEFICIENCY RELATED DIFFUSE (ENDEM 10/23/2017 Ot 250.00 10/23/2017 Ot 733.5 10/23/2017 Ot 780.39 10/23/2017 Ot V72.83 10/23/2017 Ot 250.00 10/23/2017 Ot 780.39 10/23/2017 Ot 250.00 10/23/2017 Ot 996.1 10/23/2017 Ot V58.69 10/23/2017 Ot V72.83 10/23/2017 Ot 250.00 10/23/2017 Ot 789.01 10/23/2017 Ot 789.00 10/23/2017 Ot V72.83 10/23/2017 Ot V74.8 10/23/2017 Ot 272.4 10/23/2017 Ot 780.79 10/23/2017 Ot 791.9 10/23/2017 Ot 786.3 10/23/2017 Ot 250.00 DIAB BARRY WO COMPL, TYPE II OR UNSPEC TY 10/23/2017 Ot 272.4 HYPERLIPIDEMIA NEC/NOS 10/23/2017 Ot 611.72 LUMP OR MASS IN BREAST 10/23/2017 Ot V16.3 FAMILY HX-BREAST MALIG 10/23/2017 Ot 593.9 RENAL URETERAL DIS NOS 10/23/2017 Ot 250.00 DIAB BARRY WO COMPL, TYPE II OR UNSPEC TY 10/23/2017 Ot 272.4 HYPERLIPIDEMIA NEC/NOS 10/23/2017 GELLENDER DO, HOANG A Ot 250.00 DIAB BARRY WO COMPL, TYPE II OR UNSPEC TY 10/23/2017 GELLENDER DO, HOANG A Ot 272.0 PURE HYPERCHOLESTEROLEM 10/23/2017 GELLENDER DO, HOANG A Ot 780.39 OTHER CONVULSIONS 10/23/2017 GELLENDER DO, HOANG A Ot 571.8 CHRONIC LIVER DIS NEC 10/23/2017 Ot V58.81 FIT/ADJ VASCULAR CATHETER 10/23/2017 Ot V76.12 OTH SCREEN MAMMO- MALIGN NEOPLASM OF [place] 10/23/2017 ERIC ARELLANO, JIHAN Ramos Ot 345.90 EPILEPSY UNSPEC W/O MENTION INTRACTABLE 10/23/2017 JIHAN REYES MD Ot 459.81 VENOUS INSUFFICIENCY NOS 10/23/2017 JIHAN REYES MD Ot 996.1 MALFUNC VASC DEVICE/TOYA 10/23/2017 JIHAN REYES MD Ot V72.84 EXAM PRE-OPERATIVE NOS 10/23/2017 ERIC ARELLANO, JIHAN Ramos Ot V74.8 SCREEN-BACTERIAL DIS NEC 10/23/2017 Ot E11.9 TYPE 2 DIABETES MELLITUS WITHOUT COMPLIC 10/23/2017 Ot E66.9 OBESITY, UNSPECIFIED 10/23/2017 Ot F32.9 MAJOR DEPRESSIVE DISORDER, SINGLE EPISOD 10/23/2017 Ot I10 ESSENTIAL (PRIMARY) HYPERTENSION 10/23/2017 Ot M40.56 LORDOSIS, UNSPECIFIED, LUMBAR REGION 10/23/2017 Ot Z86.19 PERSONAL HISTORY OF OTHER INFECTIOUS AND 10/23/2017 Ot Z87.19 PERSONAL HISTORY OF OTHER DISEASES OF TH 10/23/2017 ZONIA ARELLANO, JOSE DE JESUS Smith Ot E01.0 IODINE-DEFICIENCY RELATED DIFFUSE (ENDEM 10/23/2017 GELLENDER DO, HOANG Gutierrez Ot 250.00 DIAB BARRY WO COMPL, TYPE II OR UNSPEC TY 10/23/2017 GELLENDER HOANG MEDEROS Ot 272.0 PURE HYPERCHOLESTEROLEM 10/23/2017 GELLENDER DOHOANG Ot 780.39 OTHER CONVULSIONS 10/23/2017 GELLENDER DOHOANG Ot 571.8 CHRONIC LIVER DIS NEC 10/23/2017 Ot V58.81 FIT/ADJ VASCULAR CATHETER 10/23/2017 Ot V76.12 OTH SCREEN MAMMO- MALIGN NEOPLASM OF [place] 10/23/2017 ERIC ARELLANO, JIHAN Ramos Ot 345.90 EPILEPSY UNSPEC W/O MENTION INTRACTABLE 10/23/2017 JIHAN REYES MD Ot 459.81 VENOUS INSUFFICIENCY NOS 10/23/2017 JIHAN REYES MD Ot 996.1 MALFUNC VASC DEVICE/TOYA 10/23/2017 JIHAN REYES MD Ot V72.84 EXAM PRE-OPERATIVE NOS 10/23/2017 JIHAN REYES MD Ot V74.8 SCREEN-BACTERIAL DIS NEC 10/23/2017 Ot E11.9 TYPE 2 DIABETES MELLITUS WITHOUT COMPLIC 10/23/2017 Ot E66.9 OBESITY, UNSPECIFIED 10/23/2017 Ot F32.9 MAJOR DEPRESSIVE DISORDER, SINGLE EPISOD 10/23/2017 Ot I10 ESSENTIAL (PRIMARY) HYPERTENSION 10/23/2017 Ot M40.56 LORDOSIS, UNSPECIFIED, LUMBAR REGION 10/23/2017 Ot Z86.19 PERSONAL HISTORY OF OTHER INFECTIOUS AND 10/23/2017 Ot Z87.19 PERSONAL HISTORY OF OTHER DISEASES OF TH 10/23/2017 ZONIA ARELLANO, JOSE DE JESUS Smith Ot E01.0 IODINE-DEFICIENCY RELATED DIFFUSE (ENDEM 01/19/2018 GEOVANNA ARELLANO, SAHIL Jimenez Ot G47.33 OBSTRUCTIVE SLEEP APNEA (ADULT) (PEDIATR 01/19/2018 GEOVANNA ARELLANO, SAHIL Jimenez Ot G47.33 OBSTRUCTIVE SLEEP APNEA (ADULT) (PEDIATR 01/22/2018 GEOVANNA ARELLANO, SAHIL Jimenez Ot G47.33 OBSTRUCTIVE SLEEP APNEA (ADULT) (PEDIATR 01/22/2018 GELLENDER DO, HOANG Gutierrez Ot 250.00 DIAB BARRY WO COMPL, TYPE II OR UNSPEC TY 01/22/2018 GELLENDER , HOANG Gutierrez Ot 272.0 PURE HYPERCHOLESTEROLEM 01/22/2018 GELLENDER DO, HOANG A Ot 780.39 OTHER CONVULSIONS 01/22/2018 GELLENDER DO, HOANG Gutierrez Ot 571.8 CHRONIC LIVER DIS NEC 01/22/2018 Ot V58.81 FIT/ADJ VASCULAR CATHETER 01/22/2018 Ot V76.12 OTH SCREEN MAMMO- MALIGN NEOPLASM OF [place] 01/22/2018 ERIC ARELLANO, JIHAN Ramos Ot 345.90 EPILEPSY UNSPEC W/O MENTION INTRACTABLE 01/22/2018 ERIC ARELLANO, JIHAN Ramos Ot 459.81 VENOUS INSUFFICIENCY NOS 01/22/2018 ERIC ARELLANO, JIHAN Ramos Ot 996.1 MALFUNC VASC DEVICE/TOYA 01/22/2018 ERIC ARELLANO, JIHAN Ramos Ot V72.84 EXAM PRE-OPERATIVE NOS 01/22/2018 ERIC ARELLANO, JIHAN Ramos Ot V74.8 SCREEN-BACTERIAL DIS NEC 01/22/2018 Ot E11.9 TYPE 2 DIABETES MELLITUS WITHOUT COMPLIC 01/22/2018 Ot E66.9 OBESITY, UNSPECIFIED 01/22/2018 Ot F32.9 MAJOR DEPRESSIVE DISORDER, SINGLE EPISOD 01/22/2018 Ot I10 ESSENTIAL (PRIMARY) HYPERTENSION 01/22/2018 Ot M40.56 LORDOSIS, UNSPECIFIED, LUMBAR REGION 01/22/2018 Ot Z86.19 PERSONAL HISTORY OF OTHER INFECTIOUS AND 01/22/2018 Ot Z87.19 PERSONAL HISTORY OF OTHER DISEASES OF TH 01/22/2018 ZONIA ARELLANO, JOSE DE JESUS Smith Ot E01.0 IODINE-DEFICIENCY RELATED DIFFUSE (ENDEM 01/22/2018 GEOVANNA ARELLANO, SAHIL Jimenez Ot G47.33 OBSTRUCTIVE SLEEP APNEA (ADULT) (PEDIATR 01/23/2018 GEOVANNA ARELLANO, SAHIL Jimenez Ot G47.33 OBSTRUCTIVE SLEEP APNEA (ADULT) (PEDIATR 03/22/2018 Ot 250.00 03/22/2018 Ot 733.5 03/22/2018 Ot 780.39 03/22/2018 Ot V72.83 03/22/2018 Ot 250.00 03/22/2018 Ot 780.39 03/22/2018 Ot 250.00 03/22/2018 Ot 996.1 03/22/2018 Ot V58.69 03/22/2018 Ot V72.83 03/22/2018 Ot 250.00 03/22/2018 Ot 789.01 03/22/2018 Ot 789.00 03/22/2018 Ot V72.83 03/22/2018 Ot V74.8 03/22/2018 Ot 272.4 03/22/2018 Ot 780.79 03/22/2018 Ot 791.9 03/22/2018 Ot 786.3 03/22/2018 Ot 250.00 DIAB BARRY WO COMPL, TYPE II OR UNSPEC TY 03/22/2018 Ot 272.4 HYPERLIPIDEMIA NEC/NOS 03/22/2018 Ot 611.72 LUMP OR MASS IN BREAST 03/22/2018 Ot V16.3 FAMILY HX-BREAST MALIG 03/22/2018 Ot 593.9 RENAL URETERAL DIS NOS 03/22/2018 GELLENDER DO, HOANG A Ot 250.00 DIAB BARRY WO COMPL, TYPE II OR UNSPEC TY 03/22/2018 GELLENDER DO, HOANG A Ot 272.0 PURE HYPERCHOLESTEROLEM 03/22/2018 GELLENDER DO, HOANG A Ot 780.39 OTHER CONVULSIONS 03/22/2018 GELLENDER DO, HOANG A Ot 571.8 CHRONIC LIVER DIS NEC 03/22/2018 Ot V58.81 FIT/ADJ VASCULAR CATHETER 03/22/2018 Ot V76.12 OTH SCREEN MAMMO- MALIGN NEOPLASM OF [place] 03/22/2018 ERIC ARELLANO, JIHAN Ramos Ot 345.90 EPILEPSY UNSPEC W/O MENTION INTRACTABLE 03/22/2018 JIHAN REYES MD Ot 459.81 VENOUS INSUFFICIENCY NOS 03/22/2018 ERIC ARELLANO, IJHAN Ramos Ot 996.1 MALFUNC VASC DEVICE/TOYA 03/22/2018 JIHAN REYES MD Ot V72.84 EXAM PRE-OPERATIVE NOS 03/22/2018 ERIC ARELLANO, JIHAN Ramos Ot V74.8 SCREEN-BACTERIAL DIS NEC 03/22/2018 Ot E11.9 TYPE 2 DIABETES MELLITUS WITHOUT COMPLIC 03/22/2018 Ot E66.9 OBESITY, UNSPECIFIED 03/22/2018 Ot F32.9 MAJOR DEPRESSIVE DISORDER, SINGLE EPISOD 03/22/2018 Ot I10 ESSENTIAL (PRIMARY) HYPERTENSION 03/22/2018 Ot M40.56 LORDOSIS, UNSPECIFIED, LUMBAR REGION 03/22/2018 Ot Z86.19 PERSONAL HISTORY OF OTHER INFECTIOUS AND 03/22/2018 Ot Z87.19 PERSONAL HISTORY OF OTHER DISEASES OF TH 03/22/2018 ZONIA ARELLANO, JOSE DE JESUS Smith Ot E01.0 IODINE-DEFICIENCY RELATED DIFFUSE (ENDEM 04/30/2018 GEOVANNA ARELLANO, SAHIL Jimenez Ot G47.33 OBSTRUCTIVE SLEEP APNEA (ADULT) (PEDIATR 04/30/2018 GELHOANG GARCIA DO Ot 250.00 DIAB BARRY WO COMPL, TYPE II OR UNSPEC TY 04/30/2018 HOANG JESUS DO Ot 272.0 PURE HYPERCHOLESTEROLEM 04/30/2018 HOANG JESUS DO Ot 780.39 OTHER CONVULSIONS 04/30/2018 HOANG JESUS DO Ot 571.8 CHRONIC LIVER DIS NEC 04/30/2018 Ot V58.81 FIT/ADJ VASCULAR CATHETER 04/30/2018 Ot V76.12 OTH SCREEN MAMMO- MALIGN NEOPLASM OF [place] 04/30/2018 ERIC ARELLANO, JIHAN Ramos Ot 345.90 EPILEPSY UNSPEC W/O MENTION INTRACTABLE 04/30/2018 JIHAN REYES MD Ot 459.81 VENOUS INSUFFICIENCY NOS 04/30/2018 JIHAN REYES MD Ot 996.1 MALFUNC VASC DEVICE/TOYA 04/30/2018 JIHAN REYES MD Ot V72.84 EXAM PRE-OPERATIVE NOS 04/30/2018 JIHAN REYES MD Ot V74.8 SCREEN-BACTERIAL DIS NEC 04/30/2018 Ot E11.9 TYPE 2 DIABETES MELLITUS WITHOUT COMPLIC 04/30/2018 Ot E66.9 OBESITY, UNSPECIFIED 04/30/2018 Ot F32.9 MAJOR DEPRESSIVE DISORDER, SINGLE EPISOD 04/30/2018 Ot I10 ESSENTIAL (PRIMARY) HYPERTENSION 04/30/2018 Ot M40.56 LORDOSIS, UNSPECIFIED, LUMBAR REGION 04/30/2018 Ot Z86.19 PERSONAL HISTORY OF OTHER INFECTIOUS AND 04/30/2018 Ot Z87.19 PERSONAL HISTORY OF OTHER DISEASES OF TH 04/30/2018 ZONIA ARELLANO, JOSE DE JESUS Smith Ot E01.0 IODINE-DEFICIENCY RELATED DIFFUSE (ENDEM 04/30/2018 GEOVANNA ARELLANO, SAHIL K Ot G47.33 OBSTRUCTIVE SLEEP APNEA (ADULT) (PEDIATR 05/01/2018 GEOVANNA ARELLANO, SAHIL K Ot G40.909 EPILEPSY, UNSP, NOT INTRACTABLE, WITHOUT 05/01/2018 GEOVANNA ARELLANO, SAHIL K Ot G47.10 HYPERSOMNIA, UNSPECIFIED 05/01/2018 GEOVANNA ARELLANO, SAHIL Jimenez Ot G47.33 OBSTRUCTIVE SLEEP APNEA (ADULT) (PEDIATR 05/01/2018 GEOVANNA ARELLANO, SAHIL K Ot R06.83 SNORING 05/04/2018 GEOVANNA ARELLANO, SAHIL K Ot G40.909 EPILEPSY, UNSP, NOT INTRACTABLE, WITHOUT 05/04/2018 GEOVANNA ARELLANO, SAHLI K Ot G47.10 HYPERSOMNIA, UNSPECIFIED 05/04/2018 GEOVANNA ARELLANO, SAHIL K Ot G47.33 OBSTRUCTIVE SLEEP APNEA (ADULT) (PEDIATR 05/04/2018 GEOVANNA ARELLANO, SAHIL K Ot R06.83 SNORING 07/14/2018 Ot 250.00 07/14/2018 Ot 733.5 07/14/2018 Ot 780.39 07/14/2018 Ot V72.83 07/14/2018 Ot 250.00 07/14/2018 Ot 780.39 07/14/2018 Ot 250.00 07/14/2018 Ot 996.1 07/14/2018 Ot V58.69 07/14/2018 Ot V72.83 07/14/2018 Ot 250.00 07/14/2018 Ot 789.01 07/14/2018 Ot 789.00 07/14/2018 Ot V72.83 07/14/2018 Ot V74.8 07/14/2018 Ot 272.4 07/14/2018 Ot 780.79 07/14/2018 Ot 791.9 07/14/2018 Ot 786.3 07/14/2018 Ot 250.00 DIAB BARRY WO COMPL, TYPE II OR UNSPEC TY 07/14/2018 Ot 272.4 HYPERLIPIDEMIA NEC/NOS 07/14/2018 Ot 611.72 LUMP OR MASS IN BREAST 07/14/2018 Ot V16.3 FAMILY HX-BREAST MALIG 07/14/2018 Ot 593.9 RENAL URETERAL DIS NOS 07/14/2018 Ot 250.00 DIAB BARRY WO COMPL, TYPE II OR UNSPEC TY 07/14/2018 Ot 272.4 HYPERLIPIDEMIA NEC/NOS 07/14/2018 GELLENDER DO, HOANG A Ot 250.00 DIAB BARRY WO COMPL, TYPE II OR UNSPEC TY 07/14/2018 GELLENDER DO, HOANG A Ot 272.0 PURE HYPERCHOLESTEROLEM 07/14/2018 GELLENDER DO, HOANG A Ot 780.39 OTHER CONVULSIONS 07/14/2018 GELLENDER DO, HOANG Gutierrez Ot 571.8 CHRONIC LIVER DIS NEC 07/14/2018 Ot V58.81 FIT/ADJ VASCULAR CATHETER 07/14/2018 Ot V76.12 OTH SCREEN MAMMO- MALIGN NEOPLASM OF VIKTOR 07/14/2018 ERIC ARELLANO, JIHAN Ramos Ot 345.90 EPILEPSY UNSPEC W/O MENTION INTRACTABLE 07/14/2018 ERIC ARELLANO, JIHAN Ramos Ot 459.81 VENOUS INSUFFICIENCY NOS 07/14/2018 ERIC ARELLANO, JIHAN Ramos Ot 996.1 MALFUNC VASC DEVICE/TOYA 07/14/2018 ERIC ARELLANO, JIHAN Ramos Ot V72.84 EXAM PRE-OPERATIVE NOS 07/14/2018 ERIC ARELLANO, JIHAN Ramos Ot V74.8 SCREEN-BACTERIAL DIS NEC 07/14/2018 Ot E11.9 TYPE 2 DIABETES MELLITUS WITHOUT COMPLIC 07/14/2018 Ot E66.9 OBESITY, UNSPECIFIED 07/14/2018 Ot F32.9 MAJOR DEPRESSIVE DISORDER, SINGLE EPISOD 07/14/2018 Ot I10 ESSENTIAL (PRIMARY) HYPERTENSION 07/14/2018 Ot M40.56 LORDOSIS, UNSPECIFIED, LUMBAR REGION 07/14/2018 Ot Z86.19 PERSONAL HISTORY OF OTHER INFECTIOUS AND 07/14/2018 Ot Z87.19 PERSONAL HISTORY OF OTHER DISEASES OF TH 07/14/2018 ZONIA ARELLANO, JOSE DE JESUS Smith Ot E01.0 IODINE-DEFICIENCY RELATED DIFFUSE (ENDEM 07/14/2018 Ot 250.00 07/14/2018 Ot 733.5 07/14/2018 Ot 780.39 07/14/2018 Ot V72.83 07/14/2018 Ot 250.00 07/14/2018 Ot 996.1 07/14/2018 Ot V58.69 07/14/2018 Ot V72.83 07/14/2018 Ot 250.00 07/14/2018 Ot 789.01 07/14/2018 Ot 789.00 07/14/2018 Ot V72.83 07/14/2018 Ot V74.8 07/14/2018 Ot 272.4 07/14/2018 Ot 780.79 07/14/2018 Ot 791.9 07/14/2018 Ot 786.3 07/14/2018 Ot 250.00 DIAB BARRY WO COMPL, TYPE II OR UNSPEC TY 07/14/2018 Ot 272.4 HYPERLIPIDEMIA NEC/NOS 07/14/2018 Ot 611.72 LUMP OR MASS IN BREAST 07/14/2018 Ot V16.3 FAMILY HX-BREAST MALIG 07/14/2018 Ot 593.9 RENAL URETERAL DIS NOS 07/14/2018 Ot 250.00 DIAB BARRY WO COMPL, TYPE II OR UNSPEC TY 07/14/2018 Ot 272.4 HYPERLIPIDEMIA NEC/NOS 07/14/2018 GELLENDER DO, HOANG Gutierrez Ot 250.00 DIAB BARRY WO COMPL, TYPE II OR UNSPEC TY 07/14/2018 GELLENDER DO, HOANG A Ot 272.0 PURE HYPERCHOLESTEROLEM 07/14/2018 GELLENDER DO HOANG Gutierrez Ot 780.39 OTHER CONVULSIONS 07/14/2018 GELJOSE MEDEROS HOANG Gutierrez Ot 571.8 CHRONIC LIVER DIS NEC 07/14/2018 Ot V58.81 FIT/ADJ VASCULAR CATHETER 07/14/2018 Ot V76.12 OTH SCREEN MAMMO- MALIGN NEOPLASM OF VIKTOR 07/14/2018 JIHAN REYES MD Ot 345.90 EPILEPSY UNSPEC W/O MENTION INTRACTABLE 07/14/2018 JIHAN REYES MD Ot 459.81 VENOUS INSUFFICIENCY NOS 07/14/2018 JIHAN REYES MD Ot 996.1 MALFUNC VASC DEVICE/TOYA 07/14/2018 JIHAN REYES MD Ot V72.84 EXAM PRE-OPERATIVE NOS 07/14/2018 JIHAN REYES MD Ot V74.8 SCREEN-BACTERIAL DIS NEC 07/14/2018 Ot E11.9 TYPE 2 DIABETES MELLITUS WITHOUT COMPLIC 07/14/2018 Ot E66.9 OBESITY, UNSPECIFIED 07/14/2018 Ot F32.9 MAJOR DEPRESSIVE DISORDER, SINGLE EPISOD 07/14/2018 Ot I10 ESSENTIAL (PRIMARY) HYPERTENSION 07/14/2018 Ot M40.56 LORDOSIS, UNSPECIFIED, LUMBAR REGION 07/14/2018 Ot Z86.19 PERSONAL HISTORY OF OTHER INFECTIOUS AND 07/14/2018 Ot Z87.19 PERSONAL HISTORY OF OTHER DISEASES OF TH 07/14/2018 ZONIA ARELLANO, JOSE DE JESUS Smith Ot E01.0 IODINE-DEFICIENCY RELATED DIFFUSE (ENDEM 07/14/2018 Ot V58.81 FIT/ADJ VASCULAR CATHETER 07/14/2018 Ot V76.12 OTH SCREEN MAMMO- MALIGN NEOPLASM OF VIKTOR 07/14/2018 ERIC ARELLANO, JIHAN Ramos Ot 345.90 EPILEPSY UNSPEC W/O MENTION INTRACTABLE 07/14/2018 ERIC ARELLANO, JIHAN Ramos Ot 459.81 VENOUS INSUFFICIENCY NOS 07/14/2018 ERIC ARELLANO, JIHAN Ramos Ot 996.1 MALFUNC VASC DEVICE/TOYA 07/14/2018 ERIC ARELLANO, JIHAN Ramos Ot V72.84 EXAM PRE-OPERATIVE NOS 07/14/2018 ERIC ARELLANO, JIHAN Ramos Ot V74.8 SCREEN-BACTERIAL DIS NEC 07/14/2018 Ot E11.9 TYPE 2 DIABETES MELLITUS WITHOUT COMPLIC 07/14/2018 Ot E66.9 OBESITY, UNSPECIFIED 07/14/2018 Ot F32.9 MAJOR DEPRESSIVE DISORDER, SINGLE EPISOD 07/14/2018 Ot I10 ESSENTIAL (PRIMARY) HYPERTENSION 07/14/2018 Ot M40.56 LORDOSIS, UNSPECIFIED, LUMBAR REGION 07/14/2018 Ot Z86.19 PERSONAL HISTORY OF OTHER INFECTIOUS AND 07/14/2018 Ot Z87.19 PERSONAL HISTORY OF OTHER DISEASES OF TH 07/14/2018 ZONIA ARELLANO, JOSE DE JESUS Smith Ot E01.0 IODINE-DEFICIENCY RELATED DIFFUSE (ENDEM 11/25/2018 ERIC ARELLANO, JIHAN Ramos Ot Z01.818 ENCOUNTER FOR OTHER PREPROCEDURAL EXAMIN 11/29/2018 Ot V58.81 FIT/ADJ VASCULAR CATHETER 11/29/2018 ERIC ARELLANO, JIHAN Ramos Ot K20.9 ESOPHAGITIS, UNSPECIFIED 11/29/2018 REYES JIHAN ARELLANO Ot K25.9 GASTRIC ULCER, UNSP ACUTE OR CHRONIC, 11/29/2018 JIHAN REYES MD Ot K31.89 OTHER DISEASES OF STOMACH AND DUODENUM 11/29/2018 JIHAN REYES MD Ot Z79.84 HALFWAY (CURRENT) USE OF ORAL HYPOGLYC 11/29/2018 JIHAN REYES MD Ot Z79.899 OTHER HALFWAY (CURRENT) DRUG THERAPY 11/29/2018 JIHAN REYES MD, Ot Z80.3 FAMILY HISTORY OF MALIGNANT NEOPLASM OF 11/29/2018 JIHAN REYES MD Ot Z85.3 PERSONAL HISTORY OF MALIGNANT NEOPLASM O 12/01/2018 JIHAN REYES MD Ot K20.9 ESOPHAGITIS, UNSPECIFIED 12/01/2018 JIHAN REYES MD, Ot K25.9 GASTRIC ULCER, UNSP ACUTE OR CHRONIC, 12/01/2018 JIHAN REYES MD Ot K31.89 OTHER DISEASES OF STOMACH AND DUODENUM 12/01/2018 JIHAN REYES MD Ot Z79.84 SEAMER ELASTIC BAND (CURRENT) USE OF ORAL HYPOGLYC 12/01/2018 JIHAN REYES MD Ot Z79.899 OTHER SEAMER ELASTIC BAND (CURRENT) DRUG THERAPY 12/01/2018 JIHAN REYES MD, Ot Z80.3 FAMILY HISTORY OF MALIGNANT NEOPLASM OF 12/01/2018 JIHAN REYES MD, Ot Z85.3 PERSONAL HISTORY OF MALIGNANT NEOPLASM O Procedures Code Description Performed By Performed On 37.22 LEFT HEART CARDIAC CATH 10/05/2007 88.42 CONTRAST AORTOGRAM 10/05/2007 88.53 LT HEART ANGIOCARDIOGRAM 10/05/2007 88.56 CORONAR ARTERIOGR-2 CATH 10/05/2007 63852 [facility] 08/17/2014 88612 A1C (IN-HOUSE) 08/17/2014 70715 CBC 08/17/2014 08686 MONO TEST (IN-HOUSE) 08/17/2014 76534 UA W/ CULTURE IF INDICATED 08/17/2014 Results Test Result Range Methicillin resistant Staphylococcus aureus (MRSA) screening culture - 07/18/16 13:10 Methicillin resistant Staphylococcus aureus (MRSA) screening culture NEG NRG Methicillin resistant Staphylococcus aureus (MRSA) screening culture - 09/18/17 07:29 Methicillin resistant Staphylococcus aureus (MRSA) screening culture NEG NRG CMP - 02/22/18 17:19 GLUCOSE 116 mg/dL 65-99 UREA NITROGEN (BUN) 11 mg/dL 7-25 CREATININE 0.72 mg/dL 0.50-1.10 eGFR NON-AFR. BRAZILIAN 101 mL/min/1.73m2 > OR=60 eGFR 117 mL/min/1.73m2 > OR=60 BUN/CREATININE RATIO NOT APPLICABLE (calc) 6-22 SODIUM 137 mmol/L 135-146 POTASSIUM 3.3 mmol/L 3.5-5.3 CHLORIDE 103 mmol/L 98-110 CARBON DIOXIDE 22 mmol/L 20-31 CALCIUM 8.8 mg/dL 8.6-10.2 PROTEIN, TOTAL 7.6 g/dL 6.1-8.1 ALBUMIN 4.1 g/dL 3.6-5.1 GLOBULIN 3.5 g/dL (calc) 1.9-3.7 ALBUMIN/GLOBULIN RATIO 1.2 (calc) 1.0-2.5 BILIRUBIN, TOTAL 0.4 mg/dL 0.2-1.2 ALKALINE PHOSPHATASE 79 U/L 33-115 AST 15 U/L 10-35 ALT 14 U/L 6-29 Encounters ACCT No. Visit Date/Time Discharge Status Pt. Type Provider Facility Loc./Unit Complaint [id number] 08/31/2014 09:15:00 08/31/2014 23:59:59 CLS Outpatient SARAH GONZALEZ APRN [id number] 08/17/2014 13:35:00 08/17/2014 23:59:59 CLS Outpatient SARAH GONZALEZ APRN [id number] 07/14/2014 13:12:00 07/14/2014 23:59:59 CLS Outpatient SARAH GONZALEZ APRN [id number] 01/11/2010 15:09:00 01/11/2010 23:59:59 CLS Outpatient MICHEL ALAMO DDS [id number] 11/29/2018 10:28:00 11/29/2018 13:40:00 DIS Outpatient JIHAN REYES MD Via [facility] ENDO EPIGASTRIC PAIN [id number] 2018 05:55:00 2018 23:59:59 CLS Outpatient JIHAN REYES MD [facility] PREOP EGD [id number] 04/30/2018 20:23:00 05/01/2018 06:18:00 DIS Outpatient SAHIL AUSTIN MD [facility] SLEEP SLEEP APNEA [id number] 09/18/2017 07:14:00 09/18/2017 10:42:00 DIS Outpatient JIHAN REYES MD [facility] NON FUNCTIONING PORT [id number] 09/17/2017 05:43:00 09/17/2017 13:51:00 DIS Outpatient JIHAN REYES MD [facility] PREOP NON FUNCTIONING PORT [id number] 09/16/2017 10:35:00 09/16/2017 23:59:59 CLS Outpatient JOSE DE JESUS BRAR MD [facility] RAD THYROMEGALY E01.0 [id number] 07/23/2016 06:17:00 07/23/2016 11:58:00 DIS Outpatient JIHAN REYES MD [facility] GALLSTONES [id number] 07/18/2016 12:45:00 07/18/2016 13:15:00 DIS Outpatient JIHAN REYES MD [facility] PREOP GALLSTONES [id number] 05/02/2015 09:15:00 05/02/2015 17:39:00 DIS Outpatient JIHAN REYES MD [facility] NON-FUNCTIONING PORT;POOR VENOUS ACCESS [id number] 04/30/2015 09:52:00 04/30/2015 23:59:59 CLS Outpatient JIHAN REYES MD [facility] PREOP NON-FUNCITIONING PORT; POOR VENOUS ACCESS [id number] 04/05/2015 02:02:00 04/05/2015 04:39:00 DIS Emergency DOMI BURTON DO [facility] ER AMIN [id number] 08/17/2014 14:57:00 08/17/2014 23:59:59 CLS Outpatient SARAH GONZALEZ APRN [facility] INDWELLING PORT,OBESITY,DM,FEVER,MALAISE,FATIGUE [id number] 06/26/2014 18:52:00 06/26/2014 19:38:00 DIS Emergency GABY FORREST [facility] ER WANTS MEDS REFILLED [id number] 02/21/2014 01:08:00 02/21/2014 02:42:00 DIS Emergency LEESA BECERRIL MD [facility] ER RT SHOULDER PAIN-FALL 1 WK AGO [id number] 08/08/2013 10:37:00 11/06/2013 00:01:00 DIS [facility] 1 YR [id number] 08/08/2013 10:25:00 08/08/2013 23:59:59 CLS Outpatient HOANG JESUS DO [facility] RAD ABD PAIN RT SIDE FOR 2 MONTHS [id number] 03/23/2013 16:19:00 03/23/2013 23:59:59 CLS Outpatient JULIO CESAR FOURNIER [facility] QUICK KNEE PAIN [id number] 03/14/2013 08:48:00 03/14/2013 23:59:59 CLS Outpatient HOANG JESUS DO [facility] LAB DM,HYPERLCH,SEIZURE [id number] 10/23/2017 08:56:00 Document Registration [id number] 10/23/2017 08:56:00 Document Registration [id number] 10/23/2017 08:56:00 Document Registration [id number] 10/23/2017 08:56:00 Document Registration [id number] 10/23/2017 08:56:00 Document Registration [id number] 10/23/2017 08:56:00 Document Registration [id number] 10/23/2017 08:55:00 Document Registration [id number] 10/23/2017 08:55:00 Document Registration [id number] 10/23/2017 08:55:00 Document Registration [id number] 10/23/2017 08:55:00 Document Registration [id number] 10/23/2017 08:55:00 Document Registration [id number] 10/23/2017 08:55:00 Document Registration [id number] 10/23/2017 08:55:00 Document Registration [id number] 10/23/2017 08:55:00 Document Registration [id number] 10/23/2017 08:55:00 Document Registration [id number] 10/23/2017 08:55:00 Document Registration [id number] 10/23/2017 08:55:00 Document Registration [id number] 10/23/2017 08:55:00 Document Registration [id number] 08/31/2017 10:42:00 Document Registration [id number] 11/23/2014 14:09:00 Document Registration [id number] 11/16/2014 00:00:00 Document Registration [id number] 04/02/2010 15:59:00 Document Registration [id number] 11/23/2009 15:59:00 Document Registration [id number] 11/14/2009 12:04:00 Document Registration [id number] 11/14/2009 10:50:00 Document Registration [id number] 07/31/2009 16:00:00 Document Registration [id number] 06/08/2009 15:46:00 Document Registration [id number] 06/06/2009 08:34:00 Document Registration [id number] 11/20/2008 08:38:00 Document Registration [id number] 10/16/2008 08:27:00 Document Registration [id number] 02/25/2008 11:17:00 Document Registration [id number] 10/05/2007 11:31:00 Document Registration [id number] 09/18/2007 11:26:00 Document Registration [id number] 07/27/2007 16:50:00 Document Registration [id number] 01/26/2007 15:53:00 Document Registration [id number] 11/05/2006 10:33:00 Document Registration [id number] 10/13/2006 12:30:00 Document Registration [id number] 06/24/2006 10:13:00 Document Registration [id number] 12/27/2018 14:20:00 12/27/2018 23:59:59 [facility] Chapis BRAR MD, JOSE DE JESUS [facility] [id number] 02/22/2018 16:40:00 Document Registration
--- NOTE | 2019-02-11 00:41 | NUR ---
pt here with " ". pt alert gcs 15. pt relates 2300 last noc was at the [facility] and had sudden onset dizziness. pt came here by ems and was placed in w/r. pt still c/o vertigo associated with h/a rating 8 and chest pain rating 6 that she has had " since i left the hospital". said pt in hosp. 2 weks ago. pt denies abd pain but c/o nausea w/o vomiting. pt says she has had diarrhea since she left the hospital. pt also c/o dyspnea and no acute sighns of dyspnea noted. lungs cta bilaterally. pt has pain with palpation of abd ruq only. bp machine is 136/71 ausc hr 68 reg ausc resp 20 normal temp is 97.5 p ox r/a is 100. done allie cerna at 0048.
--- NOTE | 2019-02-11 01:02 | NUR ---
pt up to commode for ua. dr jeison paz earlier now shows sr 66.
--- NOTE | 2019-02-11 01:11 | NUR ---
ekg by me
--- NOTE | 2019-02-11 01:35 | NUR ---
i missed iv x 3. house sup. in er. she will try. ua to lab by me.
[2019-02-11 01:42] LABS: BILIRUBIN,URINE NEGATIVE (NEGATIVE); CLARITY,URINE CLEAR; COLOR,URINE AMBER; GLUCOSE, URINE (UA) NEGATIVE (NEGATIVE); KETONES,URINE 1+ (NEGATIVE); LEUKOCYTE ESTERASE ,URINE 1+ (NEGATIVE); NITRITE,URINE NEGATIVE (NEGATIVE); PH,URINE 5 (5-9); PROTEIN,URINE 1+ (NEGATIVE); UROBILINOGEN,URINE NORMAL (NORMAL)
[2019-02-11 01:51] LABS: BACTERIA,URINE NEGATIVE /HPF; WBC,URINE RARE /HPF
[2019-02-11 01:52] LABS: HYALINE CASTS, URINE 0-2 /LPF
[2019-02-11 01:56] LABS: AMPHETAMINE SCREEN, URINE NEGATIVE (NEGATIVE); BARBITURATE SCREEN URINE NEGATIVE (NEGATIVE); BENZODIAZEPINES SCREEN URINE NEGATIVE (NEGATIVE); CANNABINOID SCREEN, URINE NEGATIVE (NEGATIVE); COCAINE SCREEN URINE NEGATIVE (NEGATIVE); METHADONE STAT NEGATIVE (NEGATIVE); METHAMPHETAMINE SCREEN URINE S NEGATIVE (NEGATIVE); OPIATE SCREEN URINE NEGATIVE (NEGATIVE); OXYCODONE STAT NEGATIVE (NEGATIVE); PROPOXYPHENE STAT NEGATIVE (NEGATIVE); TRICYCLIC ANTIDEPRESSANTS SCRE NEGATIVE (NEGATIVE)
[2019-02-11 02:29] LABS: BASOPHILS % (AUTO) 0 % (0-10); EOSINOPHILS % (AUTO) 0 % (0-10); HEMATOCRIT 42 % (35-52); HEMOGLOBIN 14.2 G/DL (11.5-16.0); LYMPHOCYTES # (AUTO) 1.8 X 10^3 (1.0-4.0); LYMPHOCYTES % (AUTO) 14 % (12-44); MEAN CORPUSCULAR HEMOGLOBIN 33 PG (25-34); MEAN CORPUSCULAR HGB CONC 34 G/DL (32-36); MEAN CORPUSCULAR VOLUME 97 FL (80-99); MONOCYTES # (AUTO) 0.8 X 10^3 (0.0-1.0); MONOCYTES % (AUTO) 6 % (0-12); NEUTROPHILS # (AUTO) 10.1 X 10^3 (1.8-7.8); NEUTROPHILS % (AUTO) 79 % (42-75); PLATELET COUNT 532 10^3/uL (130-400); RED CELL DISTRIBUTION WIDTH 13.9 % (10.0-14.5); WHITE BLOOD COUNT 12.8 10^3/uL (4.3-11.0)
--- NOTE | 2019-02-11 02:36 | NUR ---
pauly sup missed iv x 2. lab just jeremiah labs. v/o dr tony can give the 8mg zofran po. instead of iv. i did this
[2019-02-11 02:50] LABS: ALANINE AMINOTRANSFERASE 14 U/L (0-55); ALKALINE PHOSPHATASE 100 U/L (40-136); BILIRUBIN,TOTAL 0.3 MG/DL (0.1-1.0); BUN/CREATININE RATIO 10; CALCIUM 9.7 MG/DL (8.5-10.1); CARBON DIOXIDE 23 MMOL/L (21-32); CHLORIDE 104 MMOL/L (98-107); CREATININE SERUM 0.79 MG/DL (0.60-1.30); GFR ESTIMATED > 60; GLUCOSE 110 MG/DL (70-105); POTASSIUM 3.9 MMOL/L (3.6-5.0); PROTHROMBIN TIME PATIENT 13.9 SEC (12.2-14.7); SODIUM 138 MMOL/L (135-145); TOTAL PROTEIN 7.8 GM/DL (6.4-8.2)
[2019-02-11 03:09] LABS: TSH (THYROID ANALYZER) 0.99 UIU/ML (0.35-4.94)
--- NOTE | 2019-02-11 03:26 | ED General ---
General Chief Complaint: Dizziness/Syncope Stated Complaint: DIZZY Nursing Triage Note: pt was here by rescue and placed in w/r upon arrival. pt was at [facility] at 2300 last night and c/o sudden onset dizziness Nursing Sepsis Screen: No Definite Risk Source of Information: Patient History of Present Illness Date Seen by Provider: February 11, 2019 Time Seen by Provider: 00:45 Initial Comments PT ARRIVES VIA EMS FROM LOCAL [facility] PT STATES SHE WAS PLAYING SLOT MACHINES AND BECAME DIZZY/SPINNING SENSATION, STARTED HAVING NAUSEA AND HEADACHE NO VOMITING NO PARESTHESIAS OR MOTOR DEFICITS NO VISION CHANGES NO CHEST PAIN OR SHORTNESS OF BREATH OR PALPITATIONS PT STATES SHE WAS IN [facility] THIS PAST WEEK FOR 4 DAYS WITH DX OF PNEUMONIA STATES SHE WAS DISMISSED WITH RX FOR LEVAQUIN, AND FINISHED IT YESTERDAY. NO FEVER SINCE SHE WAS RELEASED FROM HOSPITAL, BUT HAS HAD SWEATS AND CHILLS AT TIMES STATES SHE STILL HAS MILD NON-PRODUCTIVE COUGH, MILD SHORTNESS OF BREATH AND PAIN TO POSTERIOR CHEST/UPPER BACK WITH COUGHING OR TAKING A DEEP BREATH PCP: DR. BRAR AT [facility] Allergies and Home Medications Allergies Coded Allergies: Penicillins (Verified Allergy, Unknown, Pt has received Ancef w/o issue, 09/18/17) sulfamethoxazole (Verified Allergy, Unknown, 11/29/18) trimethoprim (Verified Allergy, Unknown, 11/29/18) Home Medications Duloxetine HCl 60 Mg Capsule.dr, 60 MG PO DAILY, (Reported) Hydrocodone Bit/Acetaminophen 1 Tab Tab, 1-2 TAB PO 4-6HR PRN for PAIN Prescribed by: JIHAN REYES on 09/18/17 0904 Levetiracetam 750 Mg Tablet, 750 MG PO BID, (Reported) Lisinopril 10 Mg Tablet, 10 MG PO DAILY, (Reported) Meclizine HCl 25 Mg Tablet, 25-50 MG PO Q6H Prescribed by: DOMI BURTON on 02/11/19325 Metformin HCl 500 Mg Tablet, 500 MG PO DAILY, (Reported) Ondansetron 8 Mg Tab.rapdis, 8 MG PO Q6H Prescribed by: DOMI BURTON on 02/11/19325 Scopolamine 1 Each Patch.td72, 1 EACH TD Q72 HOURS Prescribed by: DOMI BURTON on 02/11/19325 Zonisamide 100 Mg Capsule, 100 MG PO BID, (Reported) Patient Home Medication List Home Medication List Reviewed: Yes Review of Systems Review of Systems Constitutional: see HPI EENTM: no symptoms reported Respiratory: see HPI, cough, short of breath Cardiovascular: No chest pain, No edema, No palpitations, No syncope Gastrointestinal: see HPI; No abdominal pain, No diarrhea; nausea; No vomiting Genitourinary: no symptoms reported Musculoskeletal: no symptoms reported Skin: no symptoms reported Psychiatric/Neurological: See HPI, Headache Hematologic/Lymphatic: No Symptoms Reported Immunological/Allergic: no symptoms reported Past Ihytvtv-Elrmcv-Sjiwra Hx Patient Social History Alcohol Use: Denies Use Recreational Drug Use: No Smoking Status: Current Everyday Smoker (1 PPD) Type Used: Cigars, Cigarettes, Electronic/Vapor Recent Foreign Travel: No Contact w/Someone Who Travel: No Recent Infectious Disease Expo: No Recent Hopitalizations: No Physical Abuse: No Sexual Abuse: No Immunizations Up To Date Tetanus Booster (TDap): Unknown Date of Influenza Vaccine: May 16, 2013 Seasonal Allergies Seasonal Allergies: No Past Medical History Surgeries: Yes (PORT PLACEMENT X2 AND REMOVED; BREAST BIOPSY X 3; DX LAPAROSCOPIES; HYST/BSO;' EGD 11/29/18--ESOPHAGITIS AND ANTRAL ULCER; CARDIAC CATH--NO INTERVENTION ) Appendectomy, Cardiac, Gallbladder, Hysterectomy, Oophorectomy Respiratory: Yes Pneumonia Cardiac: Yes (STRESS TEST 2005 - NORMAL) Hypertension Neurological: Yes (LAST SEIZURE NOVEMBER 2018--HAD PORT PLACED 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) Headaches /Migraines, Seizure Disorder Reproductive Disorders: No Female Reproductive Disorders: Endometriosis FRUIT SORTER History: Hysterectomy Sexually Transmitted Disease: No HIV/AIDS: No Genitourinary: No Gastrointestinal: Yes Gall Bladder Disease Musculoskeletal: Yes Chronic Back Pain Endocrine: Yes Diabetes, Non-Insulin dep Loss of Vision: Bilateral Hearing Impairment: Denies Cancer: No Psychosocial: No Integumentary: No Blood Disorders: No Adverse Reaction/Blood Tranf: No (N/A) Physical Exam Vital Signs Vital Signs - First Documented 02/11/19 00:41 Temp 97.5 Pulse 68 Resp 20 B/P (MAP) 136/71 (92) Pulse Ox 100 O2 Delivery Room Air Capillary Refill : Less Than 3 Seconds Height, Weight, BMI Height: 5'3.00" Weight: 268lbs. 5.0oz. 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 Norm as Tested, Other (FLAT AFFECT) Skin: Normal Color, Warm/Dry Progress/Results/Core Measures Suspected Sepsis Recent Fever Within 48 Hours: No Infection Criteria Present: None New/Unexplained Altered Menta: No Sepsis Screen: No Definite Risk SIRS Temperature:97.5 Pulse: 68 Respiratory Rate: 20 Laboratory Tests 02/11/19 02:22: White Blood Count 12.8H Blood Pressure 136 /71 Mean: 92 Laboratory Tests 02/11/19 02:22: Creatinine 0.79, INR Comment 1.0, Platelet Count 532H, Total Bilirubin 0.3 Results/Orders Lab Results Laboratory Tests Test 02/11/19 01:06 02/11/19 02:22 Range/Units Urine Color MIL H Urine Clarity CLEAR Urine pH 5 5-9 Urine Specific [place] 1.025 H 1.016-1.022 Urine Protein 1+ H NEGATIVE Urine Glucose (UA) NEGATIVE NEGATIVE Urine Ketones 1+ H NEGATIVE Urine Nitrite NEGATIVE NEGATIVE Urine Bilirubin NEGATIVE NEGATIVE Urine Urobilinogen NORMAL NORMAL MG/DL Urine Leukocyte Esterase 1+ H NEGATIVE Urine RBC (Auto) NEGATIVE NEGATIVE Urine RBC NONE /HPF Urine WBC RARE /HPF Urine Squamous Epithelial Cells 5-10 /HPF Urine Crystals NONE /LPF Urine Bacteria NEGATIVE /HPF Urine Casts PRESENT /LPF Urine Hyaline Casts 0-2 H /LPF Urine Mucus SMALL H /LPF Urine Culture Indicated NO Urine Opiates Screen NEGATIVE NEGATIVE Urine Oxycodone Screen NEGATIVE NEGATIVE Urine Methadone Screen NEGATIVE NEGATIVE Urine Propoxyphene Screen NEGATIVE NEGATIVE Urine Barbiturates Screen NEGATIVE NEGATIVE Ur Tricyclic Antidepressants Screen NEGATIVE NEGATIVE Urine Phencyclidine Screen NEGATIVE NEGATIVE Urine Amphetamines Screen NEGATIVE NEGATIVE Urine Methamphetamines Screen NEGATIVE NEGATIVE Urine Benzodiazepines Screen NEGATIVE NEGATIVE Urine Cocaine Screen NEGATIVE NEGATIVE Urine Cannabinoids Screen NEGATIVE NEGATIVE White Blood Count 12.8 H 4.3-11.0 10^3/uL Red Blood Count 4.32 L 4.35-5.85 10^6/uL Hemoglobin 14.2 11.5-16.0 G/DL Hematocrit 42 35-52 % Mean Corpuscular Volume 97 80-99 FL Mean Corpuscular Hemoglobin 33 25-34 PG Mean Corpuscular Hemoglobin Concent 34 32-36 G/DL Red Cell Distribution Width 13.9 10.0-14.5 % Platelet Count 532 H 130-400 10^3/uL Mean Platelet Volume 9.0 7.4-10.4 FL Neutrophils (%) (Auto) 79 H 42-75 % Lymphocytes (%) (Auto) 14 12-44 % Monocytes (%) (Auto) 6 0-12 % Eosinophils (%) (Auto) 0 0-10 % Basophils (%) (Auto) 0 0-10 % Neutrophils # (Auto) 10.1 H 1.8-7.8 X 10^3 Lymphocytes # (Auto) 1.8 1.0-4.0 X 10^3 Monocytes # (Auto) 0.8 0.0-1.0 X 10^3 Eosinophils # (Auto) 0.0 0.0-0.3 10^3/uL Basophils # (Auto) 0.0 0.0-0.1 10^3/uL Prothrombin Time 13.9 12.2-14.7 SEC INR Comment 1.0 0.8-1.4 Activated Partial Thromboplast Time 29 24-35 SEC Sodium Level 138 135-145 MMOL/L Potassium Level 3.9 3.6-5.0 MMOL/L Chloride Level 104 98-107 MMOL/L Carbon Dioxide Level 23 21-32 MMOL/L Anion Gap 11 5-14 MMOL/L Blood Urea Nitrogen 8 7-18 MG/DL Creatinine 0.79 0.60-1.30 MG/DL Estimat Glomerular Filtration Rate > 60 BUN/Creatinine Ratio 10 Glucose Level 110 H 70-105 MG/DL Calcium Level 9.7 8.5-10.1 MG/DL Corrected Calcium 9.7 8.5-10.1 MG/DL Magnesium Level 2.0 1.8-2.4 MG/DL Total Bilirubin 0.3 0.1-1.0 MG/DL Aspartate Amino Transf (AST/SGOT) 14 5-34 U/L Alanine Aminotransferase (ALT/SGPT) 14 0-55 U/L Alkaline Phosphatase 100 40-136 U/L Troponin I < 0.028 <0.028 NG/ML B-Type Natriuretic Peptide 11.5 <100.0 PG/ML Total Protein 7.8 6.4-8.2 GM/DL Albumin 4.0 3.2-4.5 GM/DL TSH [place] Testing 0.99 0.35-4.94 UIU/ML Serum Alcohol < 10 <10 MG/DL My Orders Orders - DOMI BURTON DO Ed Iv/Invasive Line Start (02/11/19 00:47) Ekg Tracing (02/11/19 00:47) Monitor-Rhythm Ecg Trace Only (02/11/19 00:47) Chest Pa/Lat (2 View) (02/11/19 00:47) BNP (02/11/19 00:47) Cbc With Automated Diff (02/11/19 00:47) Comprehensive Metabolic Panel (02/11/19 00:47) Magnesium (02/11/19 00:47) Protime With Inr (02/11/19 00:47) Partial Thromboplastin Time (02/11/19 00:47) Thyroid Analyzer (02/11/19 00:47) Troponin I (02/11/19 00:47) Ua Culture If Indicated (02/11/19 00:47) Alcohol (02/11/19 01:01) Drug Screen Stat (Urine) (02/11/19 01:01) Scopolamine Patch (Transderm-Scop Patch) (02/11/19 01:15) Ondansetron Injection (Zofran Injectio (02/11/19 01:15) Meclizine Tablet (Antivert Tablet) (02/11/19 01:15) Ct Head Wo (02/11/19 01:35) Ondansetron Oral Dissolve Tab (Zofran (02/11/19 02:33) Ondansetron Oral Dissolve Tab (Zofran (02/11/19 02:59) Rx-Meclizine Hcl (Rx-Antivert) (02/11/19 03:41) Rx-Ondansetron Po (Rx-Zofran Po) (02/11/19 03:41) Medications Given in ED Current Medications Medications Dose Ordered Sig/Chantel Route Start Time Stop Time Status Last Admin Dose Admin Meclizine HCl 50 mg ONCE ONCE PO 02/11/19 01:15 02/11/19 01:16 DC 02/11/19 02:30 50 MG Ondansetron HCl 4 mg STK-MED ONCE .ROUTE 02/11/19 02:33 02/11/19 02:38 DC 02/11/19 02:41 4 MG Scopolamine 1.5 mg ONCE ONCE TD 02/11/19 01:15 02/11/19 01:16 DC 02/11/19 02:27 1.5 MG Vital Signs/I&O 02/11/19 02/11/19 00:41 03:56 Temp 97.5 97.7 Pulse 68 68 Resp 20 20 B/P (MAP) 136/71 (92) 122/79 (93) Pulse Ox 100 98 O2 Delivery Room Air Room Air Capillary Refill : Less Than 3 Seconds Blood Pressure Mean: 92 Progress Note : Progress Note UNABLE TO OBTAIN IV ACCESS--CHRONIC PROBLEM UNEVENTFUL ER STAY SYMPTOMS IMPROVED AT DISMISSAL ECG Initial ECG Impression Date: February 11, 2019 Initial ECG Impression Time: 01:12 Initial ECG Rate: 62 Initial ECG Rhythm: Normal Sinus Initial ECG Impression: Normal Diagnostic Imaging Comments CXR--NO ACUTE PROCESS, PENDING RADIOLOGIST REVIEW CT HEAD--NO ACUTE PROCESS, PER [facility] VIA FAX @ [phone] Reviewed: Reviewed by Me Departure Impression Primary Impression: Vertigo Additional Impression: History of recent pneumonia Disposition: HOME, SELF-CARE Condition: Improved Departure-Patient Inst. Referrals: JOSE DE JESUS BRAR MD (PCP/Family) Primary Care Physician Patient Instructions: Vertigo (a Type of Dizziness) (DC) Add. Discharge Instructions: SLOW POSITION CHANGES LOTS OF CLEAR LIQUIDS--WATER, BROTH, JELLO, GATORADE BLAND DIET--NO GREASY/HIGH FAT OR ACIDIC FOOD OR DRINKS TAKE YOUR REGULAR MEDICATIONS PRESCRIBED FOLLOW UP WITH YOUR DR IN 2-3 DAYS IF NO BETTER, RETURN TO ER IF WORSE All discharge instructions reviewed with patient and/or family. Voiced understanding. Scripts Scopolamine (Transderm-Scop) 1 Each Patch.td72 1 EACH TD Q72 HOURS for Dizziness, #3 PATCH Prov: DOMI BURTON DO 02/11/19 Ondansetron (Ondansetron Odt) 8 Mg Tab.rapdis 8 MG PO Q6H for Nausea/Vomiting, #10 TAB Prov: DOMI BURTON DO 02/11/19 Meclizine HCl (Meclizine HCl) 25 Mg Tablet 25-50 MG PO Q6H for Dizziness, #30 TAB Prov: DOMI BURTON DO 02/11/19 DOMI BURTON DO February 11, 2019 03:26
--- NOTE | 2019-02-11 03:45 | NUR ---
pt remains alert gs 15. remains in the room. pt denies palpitations. denies dyspnea and no acute sighns of dyspnea noted. pt denies nausea and no v/d noted in er visit thus far. pt denies vertigo laying in the bed. bp machine is 122/79 ausc hr 68 reg ausc resp 20 normal recheck temp 97.1 p ox r/a is 98. tele shows sr 67.
[2019-02-11 03:56] VITALS: BP 122/79
--- NOTE | 2019-02-11 03:56 | NUR ---
d/c instructions to pt. told to read all papers. scripts faxed. pt left in w/c with . i took pt to the car. pt knows f/u. i went over the handtyped by dr gomez on the chart. pt had no iv. take home zofran and meclizine given.
--- NOTE | 2019-02-11 07:25 | Diagnostic Imaging Report ---
EXAMINATION: CHEST (PA AND LATERAL) CLINICAL INDICATION: 48-year-old female, dizziness. COMPARISON: May 02, 2015. FINDINGS: Stable overall appearance of the cardiomediastinal silhouette. There is no identified pneumothorax. There is no pleural effusion. There are streaky opacities in the right upper lobe. IMPRESSION: 1. Streaky opacities in the right upper lobe which may relate to infiltrate and/or atelectasis. Report was faxed/called to Dr. Henriquez by mena at 7:20 am. ABBEY Ritter, was also notified. Dictated by: Dictated on workstation # [id number]
--- NOTE | 2019-02-11 07:42 | Diagnostic Imaging Report ---
PROCEDURE: CT head without contrast. TECHNIQUE: Multiple contiguous axial images were obtained through the brain without the use of intravenous contrast. Auto Exposure Controls were utilized during the CT exam to meet ALARA standards for radiation dose reduction. DATE: February 11, 2019. COMPARISON: CT head April 05, 2015. INDICATION: 48-year-old female, dizziness. FINDINGS: The ventricles and cerebral spinal fluid spaces are of normal size and configuration for the patient's age. There is no mass effect or midline shift. There is no acute intracranial hemorrhage. There is no abnormal extra-axial fluid collection. The visualized portions of the paranasal sinuses, mastoid air cells and middle ears are well aerated. IMPRESSION: 1. No identified acute intracranial abnormality. Dictated by: Dictated on workstation # [id number]
== END | disposition home or self-care (01) ==
LOC: EDUNIT# 23:39 → ER 23:40
DX: R42 Dizziness and giddiness (principal); I10 Essential (primary) hypertension; G40.909 Epilepsy, unspecified, not intractable, without status epilepticus; E11.9 Type 2 diabetes mellitus without complications; G43.909 Migraine, unspecified, not intractable, without status migrainosus; F17.210 Nicotine dependence, cigarettes, uncomplicated; F17.290 Nicotine dependence, other tobacco product, uncomplicated; Z87.19 Personal history of other diseases of the digestive system; Z87.448 Personal history of other diseases of urinary system; Z98.890 Other specified postprocedural states; Z90.49 Acquired absence of other specified parts of digestive tract; Z90.710 Acquired absence of both cervix and uterus; Z87.01 Personal history of pneumonia (recurrent); Z88.0 Allergy status to penicillin; Z88.2 Allergy status to sulfonamides; Z88.8 Allergy status to other drugs, medicaments and biological substances
CPT/HCPCS: 70450; 71046; 93005; 93041